=== PATIENT | female | born 1945 | race Caucasian/White ===

== ENCOUNTER 2018-12-22 10:21 | Emergency (ER) | payer OTHER ==
--- OUTSIDE RECORDS SUMMARY | 2018-12-22 10:24 | XMS REPORT ---
:1945 Author Organization eClinicalWorks Care Team Providers Name Role Phone Kai Luz Provider Role Unavailable Allergies No Known Allergies Problems Problem Type Condition Code Onset Dates Condition Status Problem Irritable bowel syndrome with K58.0 Active constipation and diarrhea Problem History of coronary artery stent Z95.5 Active placement Problem Atherosclerosis of coronary artery I25.10 Active of [place] [facility] Problem Benign essential HTN I10 Active Problem Polyp of colon, unspecified part of K63.5 Active colon, unspecified type Problem Memory loss R41.3 Active Problem Chronic back pain M54.9 Active Problem Osteoporosis M81.0 Active Problem Anorexia R63.0 Active Medications No Known Medications Results No Known Results Summary Purpose eClinicalWorks Submission
--- OUTSIDE RECORDS SUMMARY | 2018-12-22 10:24 | XMS REPORT ---
:1945 Author Organization eClinicalWorks Care Team Providers Name Role Phone LuzPhilliph Provider Role Unavailable Allergies, Adverse Reactions, Alerts Substance Reaction Event Type N.K.D.A. Info Not Available Non Drug Allergy Problems Problem Type Condition Code Onset Dates Condition Status Problem Irritable bowel syndrome with K58.0 Active constipation and diarrhea Problem History of coronary artery stent Z95.5 Active placement Assessment Osteoporosis M81.0 Active Problem Atherosclerosis of coronary artery I25.10 Active of [place] heart Problem Benign essential HTN I10 Active Problem Polyp of colon, unspecified part of K63.5 Active colon, unspecified type Problem Memory loss R41.3 Active Problem Chronic back pain M54.9 Active Problem Osteoporosis M81.0 Active Problem Anorexia R63.0 Active Medications Medication Code Code Instructions Start End Status Dosage System Date Date Potassium [facility] 27475771590 Oral Active 1 tab Calcium [facility] 68638258813 600 MG Orally Active 1 tablet with Twice a day meals Furosemide ND 65932335713 20 MG Orally Active 1 tablet Once a day Coreg [facility] 21775435519 6.25 MG Orally Active 1 tab BID Aricept [facility] 81371489921 5 MG Orally Active 1 tablet at Once a day bedtime Aspir-81 [facility] 23638832049 81 MG Orally Active 1 tablet Once a day Prolia [facility] 99457418502 60 MG/ML Active 60 MG INJECTED SUBCUTANEOUSLY EVERY 6 MONTHS Niacin [facility] 88695493654 500 MG Orally Active 1 tablet with Once a day food Results No Known Results Summary Purpose eClinicalWorks Submission
--- OUTSIDE RECORDS SUMMARY | 2018-12-22 10:24 | XMS REPORT ---
:1945 Author Organization eClinicalWorks Care Team Providers Name Role Phone Kai Luz Provider Role Unavailable Allergies No Known Allergies Problems Problem Type Condition Code Onset Dates Condition Status Problem Irritable bowel syndrome with K58.0 Active constipation and diarrhea Problem History of coronary artery stent Z95.5 Active placement Problem Atherosclerosis of coronary artery I25.10 Active of [place] heart Problem Benign essential HTN I10 Active Problem Polyp of colon, unspecified part of K63.5 Active colon, unspecified type Problem Memory loss R41.3 Active Problem Chronic back pain M54.9 Active Problem Osteoporosis M81.0 Active Problem Anorexia R63.0 Active Assessment History of coronary artery stent Z95.5 Active placement Assessment Anorexia R63.0 Active Assessment Polyp of colon, unspecified part of K63.5 Active colon, unspecified type Assessment Osteoporosis M81.0 Active Assessment Chronic back pain M54.9 Active Assessment Irritable bowel syndrome with K58.0 Active constipation and diarrhea Assessment Benign essential HTN I10 Active Assessment Memory loss R41.3 Active Assessment Atherosclerosis of coronary artery I25.10 Active of [place] heart Medications Medication Code Code Instructions Start End Date Status Dosage System Date Furosemide [facility] 14016821738 20 MG Orally Active 1 tablet Once a day Potassium ND 93443345361 Oral Active 1 tab Aspir-81 [facility] 73391839149 81 MG Orally Active 1 tablet Once a day Prolia [facility] 76676758208 60 MG/ML June 10, Active as directed Subcutaneous 2019 Every 6 months Coreg ND 46077394719 6.25 MG Orally Active 1 tab BID Calcium ND 76745979426 600 MG Orally Active 1 tablet Twice a day with meals Niacin ND 24868170641 500 MG Orally Active 1 tablet Once a day with food Aricept [facility] 40596308880 5 MG Orally Once Active 1 tablet at a day bedtime Results No Known Results Summary Purpose eClinicalWorks Submission
--- OUTSIDE RECORDS SUMMARY | 2018-12-22 10:24 | XMS REPORT ---
:1945 Author Organization eClinicalWorks Care Team Providers Name Role Phone Kai Luz Provider Role Unavailable Allergies No Known Allergies Problems Problem Type Condition Code Onset Dates Condition Status Assessment Atherosclerosis of coronary artery I25.10 Active of [place] [facility] Problem Irritable bowel syndrome with K58.0 Active constipation and diarrhea Problem History of coronary artery stent Z95.5 Active placement Problem Atherosclerosis of coronary artery I25.10 Active of [place] [facility] Problem Benign essential HTN I10 Active Problem Polyp of colon, unspecified part of K63.5 Active colon, unspecified type Problem Memory loss R41.3 Active Problem Chronic back pain M54.9 Active Problem Osteoporosis M81.0 Active Problem Anorexia R63.0 Active Assessment Polyp of colon, unspecified part of K63.5 Active colon, unspecified type Assessment History of coronary artery stent Z95.5 Active placement Assessment Memory loss R41.3 Active Assessment Osteoporosis M81.0 Active Assessment Anorexia R63.0 Active Assessment Chronic back pain M54.9 Active Assessment Irritable bowel syndrome with K58.0 Active constipation and diarrhea Assessment Benign essential HTN I10 Active Medications Medication Code System Code Instructions Start End Date Status Dosage Date Aricept [facility] 19240275418 5 MG Orally Once Active 1 tablet at a day bedtime Coreg [facility] 26933525062 6.25 MG Orally Active 1 tab BID Aspir-81 [facility] 67459182980 81 MG Orally Active 1 tablet Once a day Niacin [facility] 07167403977 500 MG Orally Active 1 tablet Once a day with food Potassium [facility] 09152295482 Oral Active 1 tab Calcium [facility] 15932284539 600 MG Orally Active 1 tablet Twice a day with meals Furosemide [facility] 17990099641 20 MG Orally Active 1 tablet Once a day Prolia [facility] 99074171773 60 MG/ML Active not defined Subcutaneous Results No Known Results Summary Purpose eClinicalWorks Submission
--- NOTE | 2018-12-22 10:58 | RAD REPORT ---
EXAM DESCRIPTION: CT - Head Brain Wo Cont - 12/22/2018 10:51 am CLINICAL HISTORY: Syncope;Headache History of prior CVA COMPARISON: Brain Wo Cont dated 04/23/2018 TECHNIQUE: All CT scans are performed using dose optimization technique as appropriate and may inclu de automated exposure control or mA/KV adjustment according to patient size. FINDINGS: No intracranial hemorrhage, hydrocephalus or extra-axial fluid collection.Mild generalized brain atrophy is seen.No areas of brain edema or evidence of midline shift. Area of gliosis is seen corresponding to previous infarct posterior right frontal lobe. The paranasal sinuses and mastoids are clear. The calvarium is intact. IMPRESSION: No acute intracranial abnormality.
--- NOTE | 2018-12-22 11:29 | RAD REPORT ---
EXAM DESCRIPTION: RAD - Chest Pa And Lat (2 Views) - 12/22/2018 11:16 am CLINICAL HISTORY: BLUNT CHEST TRAUMA Chest pain. COMPARISON: Chest Single View dated 05/10/2016; ABDOMEN ACUTE SERIES dated 05/14/2009; CHEST PA AND LA T 2 VIEW dated 10/13/2008; CHEST SINGLE VIEW dated 07/14/2008 FINDINGS: A prominent hyperexpansion of the lungs is noted compatible with underlying COPD. The hear t is normal in size. No displaced fractures. Moderate S-shaped scoliosis of the thoracolumbar spine. Aortic atherosclerosis. IMPRESSION: Advanced COPD.
[2018-12-22 12:04] LABS: Absolute Lymphocytes (CBC) 1.9 K/uL (0.7-4.9); Absolute Monocytes 0.9 K/uL (0.1-1.3); Absolute Neutrophil 5.5 K/uL (1.8-8.0); Basophils % 0.8 % (0-1.3); Eosinophils % 1.1 % (0-4.4); Hematocrit 45.6 % (36.0-45.0); Lymphocytes % 22.1 % (15.3-44.8); MPV 7.8 fL (7.6-11.3); Monocytes % 10.1 % (3.3-12.3); RBC Red Blood Cell Count 5.43 M/uL (3.86-4.86)
[2018-12-22 12:08] LABS: Protime INR 1.16
[2018-12-22 12:38] LABS: BUN Blood Urea Nitrogen 7 mg/dL (7-18); Bicarbonate 36 mmol/L (21-32); Glucose Level 94 mg/dL (74-106); Sodium Level 141 mmol/L (136-145); Troponin (Emerg Dept Use Only) < 0.02 ng/mL (0.0-0.045)
[2018-12-22 12:57] LABS: Potassium 2.6 mmol/L (3.5-5.1)
--- NOTE | 2018-12-22 13:24 | EKG ---
Test Date: 2018-12-22 Test Time: 11:26:24 Leasing Representative: WILMA MEASUREMENT RESULTS: Intervals: Rate: 75 ME: 180 QRSD: 90 QT: 396 QTc: 442 [place]: P: 85 ME: 180 QRS: 78 T: 64 INTERPRETIVE STATEMENTS: Normal sinus rhythm Normal ECG Compared to ECG 05/10/2016 15:45:23 Left ventricular hypertrophy no longer present Electronically Signed On 12-22-18 13:23:57 OPERATIONS ADMINISTRATOR by Bebeto Maldonado
--- NOTE | 2018-12-22 13:25 | ER ---
Nurse's Notes [facility] Name: Anh Saavedra Age: 73 yrs Sex: Female : 1945 Arrival Date: 12/22/2018 Time: 10:24 Bed 16 Private MD: Kai Luz Diagnosis: Syncope and collapse;Dehydration;Hypokalemia Presentation: 12/22 10:42 Presenting complaint: Patient states: Syncopal episode last night at approx 1730, ph reports that pt vomited x 2 last night and was sluggish this morning, pt reports pain in top of head and in chest w/ movement. Transition of care: patient was not received from another setting of care. Onset of symptoms was December 22, 2018. Risk Assessment: Do you want to hurt yourself or someone else? Patient reports no desire to harm self or others. Initial Sepsis Screen: Does the patient meet any 2 criteria? No. Patient's initial sepsis screen is negative. Does the patient have a suspected source of infection? No. Patient's initial sepsis screen is negative. Care prior to arrival: None. 10:42 Method Of Arrival: Wheelchair 10:42 Acuity: RAYA 3 ph Historical: - Allergies: 10:45 Sulfa (Sulfonamide Antibiotics); ph - Home Meds: 11:00 furosemide 20 mg Oral tab 1 tab once daily [Active]; carvedilol 6.25 mg oral tab 1 tab rb1 2 times per day [Active]; galantamine 12 mg oral tab 1 tab daily [Active]; aspirin 81 mg Oral chew 1 tab once daily [Active]; calcium carbonate 600 mg (1,500 mg) Oral tab [Active]; potassium gluconate 550 mg (90 mg) oral tab [Active]; Vitamin D3 1,000 unit oral cap [Active]; Vitamin B-12 1,000 mcg Oral tab [Active]; niacin 500 mg Oral tab 1 tab daily [Active]; - PMHx: 10:45 Hypertension; Myocardial infarction; ph - PSHx: 11:00 None; rb1 - Immunization history:: Adult Immunizations unknown. - Social history:: Smoking status: Patient/guardian denies using tobacco. - Family history:: not pertinent. - Ebola Screening: : No symptoms or risks identified at this time. - Hospitalizations: : No recent hospitalization is reported. Screenin:30 Abuse screen: Denies threats or abuse. Nutritional screening: No deficits noted. rb1 Tuberculosis screening: No symptoms or risk factors identified. Fall Risk Fall in past 12 months (25 points). No secondary diagnosis (0 pts). IV access (20 points). Ambulatory Aid- None/Bed Rest/Nurse Assist (0 pts). Gait- Normal/Bed Rest/Wheelchair (0 pts) Mental Status- Oriented to own ability (0 pts). Total [place] Fall Scale indicates High Risk Score (45 or more points). Fall prevention measures have been instituted. Side Rails Up X 2 Placed Close to Nursing Station 1:1 Attendant Assigned Frequent Obs/Assessments Occuring Family Present and informed to notify staff if the need to leave the bedside As available patient and family educated on Fall Prevention Program and Strategies. Assessment: 10:30 General: Appears in no apparent distress. comfortable, Behavior is calm, cooperative. rb1 Pain: Complains of pain in head Pain currently is 5 out of 10 on a pain scale. Pain began 1 day ago. Neuro: Level of Consciousness is awake, alert, obeys commands, Oriented to person, place, time, situation. Cardiovascular: Capillary refill < 3 seconds is brisk in bilateral fingers. Respiratory: Airway is patent Respiratory effort is even, unlabored, Respiratory pattern is regular, symmetrical. GI: Reports vomiting, yesterday but not today. : No signs and/or symptoms were reported regarding the genitourinary system. EENT: Eyes with exudate noted from outer aspect of conjuctiva of left eye and inner aspect of conjunctiva of left eye Sclera/Cornea are reddened in outer aspect of conjuctiva of left eye and inner aspect of conjunctiva of left eye Left eye is being treated by another physician, partial loss of sight in the left eye.. Derm: Skin is pink, warm \T\ dry. 10:30 Cardiovascular: Rhythm is regular. rb1 11:30 Reassessment: Patient appears in no apparent distress at this time. No changes from rb1 previously documented assessment. at bedside. 12:30 Reassessment: Patient appears in no apparent distress at this time. Patient and/or rb1 family updated on plan of care and expected duration. Pain level reassessed. Patient is alert, oriented x 3, equal unlabored respirations, skin warm/dry/pink. pain 4/10. 13:30 Reassessment: Patient appears in no apparent distress at this time. No changes from rb1 previously documented assessment. 13:34 Reassessment: Discharge pending due to Potassium infusing. rb1 14:30 Reassessment: Patient appears in no apparent distress at this time. Patient and/or rb1 family updated on plan of care and expected duration. Pain level reassessed. Patient is alert, oriented x 3, equal unlabored respirations, skin warm/dry/pink. Potassium is still infusing. 14:40 Reassessment: Had to decrease the Potassium to 40 ml/h due to it burning the pt. arm. rb1 15:40 Reassessment: Patient appears in no apparent distress at this time. No changes from rb1 previously documented assessment. 16:05 Reassessment: Pt. is unable to give a urine specimen. Provider notified. Received order rb1 to discharge without urine and for the pt. to follow up with her PCP if she has any symptoms of a UTI. Vital Signs: 10:44 BP 181 / 118; Pulse 74; Resp 16; Temp 98.9; Pulse Ox 96% on R/A; Weight 39.46 kg; ph Height 5 ft. 1 in. (154.94 cm); Pain 7/10; 11:30 BP 170 / 75; Pulse 69; Resp 17; Pulse Ox 96% on R/A; Pain 5/10; rb1 12:30 BP 165 / 73; Pulse 70; Resp 18; Pulse Ox 96% on R/A; rb1 13:30 BP 170 / 81; Pulse 69; Resp 19; Pulse Ox 95% on R/A; rb1 13:50 Pain 0/10; rb1 14:30 BP 161 / 65; Pulse 61; Resp 17; Pulse Ox 97% on R/A; rb1 15:30 BP 180 / 77; Pulse 79; Resp 14; Pulse Ox 97% on R/A; Pain 0/10; rb1 10:44 Body Mass Index 16.44 (39.46 kg, 154.94 cm) ph ED Course: 10:24 Patient arrived in ED. sb2 10:25 Kai Luz DO is Private Physician. sb2 10:27 Evaristo Barahona MD is Attending Physician. rn 10:30 Patient has correct armband on for positive identification. Placed in gown. Bed in low rb1 position. Call light in reach. Side rails up X 1. monitoring engineer on. Pulse ox on. NIBP on. Warm blanket given. 10:30 Missed attempt(s): 22 gauge in left antecubital area. rb1 10:43 Triage completed. ph 10:44 Kay Saeed, RN is Primary Nurse. rb1 10:44 Arm band placed on Patient placed in an exam room, on a stretcher, on hospital monitor, ph on pulse oximetry. 10:51 CT Head Brain wo Cont In Process Unspecified. EDMS 11:13 X-ray completed. jb2 11:14 XRAY Chest Pa And Lat (2 Views) In Process Unspecified. EDMS 11:43 EKG done, by bioprocessing manufacturing technician. reviewed by Evaristo Barahona MD. dt2 11:46 Initial lab(s) drawn, by me, sent to lab. Missed attempt(s): 22 gauge in left ms antecubital area. Inserted saline lock: 24 gauge in right wrist, using aseptic technique. Blood collected. 13:24 Kai Luz DO is Referral Physician. rn 16:16 No provider procedures requiring assistance completed. IV discontinued, intact, rb1 bleeding controlled, No redness/swelling at site. Pressure dressing applied. Administered Medications: 13:34 Drug: NS 0.9% 500 ml Route: IV; Rate: bolus; Site: right forearm; rb1 14:55 Follow up: IV Status: Completed infusion rb1 13:34 Drug: Potassium Chloride 40 mEq Route: PO; rb1 14:00 Follow up: Response: No adverse reaction rb1 13:34 Drug: Potassium Chloride 20 mEq Route: IV; Rate: calculated rate; Site: right forearm; rb1 15:58 Follow up: Response: No adverse reaction; IV Status: Completed infusion rb1 15:00 Drug: NS 0.9% 250 ml Route: IV; Rate: bolus; Site: right forearm; rb1 15:58 Follow up: IV Status: Completed infusion rb1 Outcome: 13:24 Discharge ordered by MD. rn 16:16 Patient left the ED. rb1 16:16 Discharged to home via wheelchair, with significant other. rb1 16:16 Condition: stable 16:16 Discharge instructions given to patient, Instructed on discharge instructions, follow up and referral plans. Demonstrated understanding of instructions, follow-up care, Prescriptions given X none Signatures: Dispatcher [employer] EDMS Jose Rafael Koo jb2 Marisa Guillen ms, Roman, MD MD rn Vazquez, XENIA Oneil RN ph Christophe, Kay, RN RN rb1 Dorothea Henning2 Ruma Gomes2
--- NOTE | 2018-12-22 13:25 | EDPHYS ---
Physician Documentation [facility] Name: Anh Saavedra Age: 73 yrs Sex: Female : 1945 Arrival Date: 12/22/2018 Time: 10:24 Bed 16 Private MD: Kai Luz ED Physician Evaristo Barahona HPI: 12/22 10:40 This 73 yrs old Female presents to ER via Unassigned with complaints of rn Syncope, Fall Injury. 10:40 The patient has experienced syncope. Onset: The symptoms/episode began/occurred rn yesterday. Associated signs and symptoms: Pertinent positives: confusion, headache. Current symptoms: confusion. The patient has not experienced similar symptoms in the past. Family reports fall/passed out yesterday afternoon around 1700, felt fine earlier in day, reports feeling "bad", needed to go lay down but passed out and woke up in corner of room. Did not have preceding pain. Threw up twice last night. Woke up this morning still "sluggish", when called pcp told to come in to ER for eval. NO focal neurological complaint. . Historical: - Allergies: 10:45 Sulfa (Sulfonamide Antibiotics); ph - Home Meds: 11:00 furosemide 20 mg Oral tab 1 tab once daily [Active]; carvedilol 6.25 mg oral tab 1 tab rb1 2 times per day [Active]; galantamine 12 mg oral tab 1 tab daily [Active]; aspirin 81 mg Oral chew 1 tab once daily [Active]; calcium carbonate 600 mg (1,500 mg) Oral tab [Active]; potassium gluconate 550 mg (90 mg) oral tab [Active]; Vitamin D3 1,000 unit oral cap [Active]; Vitamin B-12 1,000 mcg Oral tab [Active]; niacin 500 mg Oral tab 1 tab daily [Active]; - PMHx: 10:45 Hypertension; Myocardial infarction; ph - PSHx: 11:00 None; rb1 - Immunization history:: Adult Immunizations unknown. - Social history:: Smoking status: Patient/guardian denies using tobacco. - Family history:: not pertinent. - Ebola Screening: : No symptoms or risks identified at this time. - Hospitalizations: : No recent hospitalization is reported. ROS: 10:40 Constitutional: Negative for fever, chills, and weight loss, Eyes: Negative for injury rn Neck: Negative for injury, pain, and swelling, Cardiovascular: Negative for palpitations, and edema, Respiratory: Negative for shortness of breath, cough, wheezing, and pleuritic chest pain, Abdomen/GI: Negative for abdominal pain, diarrhea, and constipation, MS/Extremity: Negative for injury and deformity, Skin: Negative for injury, rash, and discoloration, Neuro: Negative for numbness, tingling, and seizure. Exam: 10:40 Constitutional: This is a well developed, well nourished patient who is awake, alert, rn and in no acute distress. Head/Face: Normocephalic, atraumatic. Eyes: + left eye erythema ENT: MMM Neck: Trachea midline, no thyromegaly or masses palpated, and no cervical lymphadenopathy. Supple, full range of motion without nuchal rigidity, or vertebral point tenderness. No Meningismus. Cardiovascular: Regular rate and rhythm with a normal S1 and S2. No gallops, murmurs, or rubs. No JVD. No pulse deficits. Respiratory: Lungs have equal breath sounds bilaterally, clear to auscultation and percussion. No rales, rhonchi or wheezes noted. No increased work of breathing, no retractions or nasal flaring. Abdomen/GI: Soft, non-tender Skin: Warm, dry with normal turgor. Normal color with no rashes, no lesions, and no evidence of cellulitis. MS/ Extremity: Pulses equal, no cyanosis. Neurovascular intact. Full, normal range of motion. Equal circumference. Neuro: Awake and alert, GCS 15, oriented to person, place, time, and situation. Cranial nerves II-XII grossly intact. Motor strength 5/5 in all extremities. Sensory grossly intact. Cerebellar exam normal. 12:41 ECG was reviewed by the Attending Physician. rn Vital Signs: 10:44 BP 181 / 118; Pulse 74; Resp 16; Temp 98.9; Pulse Ox 96% on R/A; Weight 39.46 kg; ph Height 5 ft. 1 in. (154.94 cm); Pain 7/10; 11:30 BP 170 / 75; Pulse 69; Resp 17; Pulse Ox 96% on R/A; Pain 5/10; rb1 12:30 BP 165 / 73; Pulse 70; Resp 18; Pulse Ox 96% on R/A; rb1 13:30 BP 170 / 81; Pulse 69; Resp 19; Pulse Ox 95% on R/A; rb1 13:50 Pain 0/10; rb1 14:30 BP 161 / 65; Pulse 61; Resp 17; Pulse Ox 97% on R/A; rb1 15:30 BP 180 / 77; Pulse 79; Resp 14; Pulse Ox 97% on R/A; Pain 0/10; rb1 10:44 Body Mass Index 16.44 (39.46 kg, 154.94 cm) ph MDM: 10:27 Patient medically screened. rn 13:22 Differential Diagnosis: idiopathic syncope, vasovagal episode, seizure, dehydration, rn electrolyte disorder.. Data reviewed: vital signs, nurses notes, lab test result(s), EKG, radiologic studies, CT scan, plain films, and as a result, I will discharge patient. Counseling: I had a detailed discussion with the patient and/or guardian regarding: the historical points, exam findings, and any diagnostic results supporting the discharge/admit diagnosis, lab results, radiology results, the need for further work-up and treatment in the hospital. Response to treatment: the patient's symptoms have mildly improved after treatment, and as a result, I will discharge patient. Admission orders: after a detailed discussion of the patient's condition and case, the admit orders are written by me. Special discussion: I discussed with the patient/guardian in detail that at this point there is no indication for admission to the hospital. It is understood, however, that if the symptoms persist or worsen the patient needs to return immediately for re-evaluation. ED course: Pt states feels better, normal neuro exam, neg ct head, requests to go home, given fluids and potassium for dehydration and hypokalemia, will recheck potassium with pcp and return precautions given and understood. . 12/22 10:39 Order name: Basic Metabolic Panel; Complete Time: 13: rn 12/22 10:39 Order name: CBC with Diff; Complete Time: 12:52 rn 12/22 10:39 Order name: Magnesium; Complete Time: 13: rn 12/22 10:39 Order name: Protime (+inr); Complete Time: 12:52 rn 12/22 10:39 Order name: Ptt, Activated; Complete Time: 12: rn 12/22 10:39 Order name: Troponin (emerg Dept Use Only); Complete Time: 13:07 rn 12/22 10:39 Order name: CT Head Brain wo Cont; Complete Time: 11:21 rn 12/22 10:39 Order name: EKG; Complete Time: 10:41 rn 12/22 10:39 Order name: Cardiac monitoring; Complete Time: 11:47 rn 12/22 10:39 Order name: XRAY Chest Pa And Lat (2 Views); Complete Time: 11:37 rn 12/22 10:39 Order name: EKG - Nurse/Tech; Complete Time: 11: rn 12/22 10:39 Order name: IV Saline Lock; Complete Time: 11: rn 12/22 10:39 Order name: Labs collected and sent; Complete Time: : rn 12/22 10:39 Order name: NPO; Complete Time: : rn 12/22 10:39 Order name: O2 Per Protocol; Complete Time: : rn 12/22 10:39 Order name: O2 Sat Monitoring; Complete Time: : rn 12/22 10:39 Order name: Urine Dipstick-Ancillary (obtain specimen); Complete Time: 16:20 rn EC:41 Rate is 75 beats/min. Rhythm is regular. QRS [place] is Normal. VT interval is normal. QRS rn interval is normal. QT interval is normal. No Q waves. T waves are Normal. No ST changes noted. Clinical impression: Normal ECG. Interpreted by me. Administered Medications: 13:34 Drug: NS 0.9% 500 ml Route: IV; Rate: bolus; Site: right forearm; rb1 14:55 Follow up: IV Status: Completed infusion rb1 13:34 Drug: Potassium Chloride 40 mEq Route: PO; rb1 14:00 Follow up: Response: No adverse reaction rb1 13:34 Drug: Potassium Chloride 20 mEq Route: IV; Rate: calculated rate; Site: right forearm; rb1 15:58 Follow up: Response: No adverse reaction; IV Status: Completed infusion rb1 15:00 Drug: NS 0.9% 250 ml Route: IV; Rate: bolus; Site: right forearm; rb1 15:58 Follow up: IV Status: Completed infusion rb1 Disposition: 12/22/18 13:24 Discharged to Home. Impression: Syncope and collapse, Dehydration, Hypokalemia. - Condition is Stable. - Discharge Instructions: Dehydration, Adult, Potassium Content of Foods, Syncope, Hypokalemia. - Medication Reconciliation Form, Thank You Letter, Antibiotic Education, Prescription Opioid Use form. - Follow up: Kai Luz DO; When: As needed; Reason: Recheck today's complaints, Re-evaluation by your physician. - Problem is new. - Symptoms have improved. Signatures: Dispatcher [employer] EDMS Evaristo Barahona MD MD rn Hall, Patricia, RN RN Kay Saeed RN RN rb1 Corrections: (The following items were deleted from the chart) 16:16 13:24 12/22/2018 13:24 Discharged to Home. Impression: Syncope and collapse; rb1 Dehydration; Hypokalemia. Condition is Stable. Forms are Medication Reconciliation Form, Thank You Letter, Antibiotic Education, Prescription Opioid Use. Follow up: Kai Luz; When: As needed; Reason: Recheck today's complaints, Re-evaluation by your physician. Problem is new. Symptoms have improved. rn
[2018-12-22] MEDS ORDERED: POTASSIUM CL SA 10 MEQ TAB PO ONE (13:40)
[2018-12-22] MEDS ORDERED: NA CHLORIDE 0.9% 500 ML ONE (13:40)
[2018-12-22] MEDS ORDERED: KCL 20 MEQ/100 mL IVPB 20 MEQ/100 ML BAG IV ONE (13:41)
[2018-12-22] MEDS ORDERED: NA CHLORIDE 0.9% 250 ML ONE (14:54)
== END 2018-12-22 16:16 | disposition home or self-care (01) ==
LOC: ER 10:21
DX: E86.0 Dehydration (principal); E87.6 Hypokalemia; R55 Syncope and collapse; I10 Essential (primary) hypertension; I25.2 Old myocardial infarction; Z79.899 Other long term (current) drug therapy
CPT/HCPCS: 36415; 70450; 71046; 80048; 83735; 84484; 85025; 85610; 85730; 93005; 96365; 96366; 99285

== ENCOUNTER 2019-05-07 10:26 | Emergency (ER) | payer OTHER ==
--- OUTSIDE RECORDS SUMMARY | 2019-05-07 10:28 | XMS REPORT | Clinical Summary ---
:1945 Author Organization [address] [address] Care Team Providers Name Role Phone Unavailable Primary Care Provider Unavailable Allergies Not on File Medications Not on file Active Problems Not on file Encounters Date Type Specialty Care Team Description 04/19/2019 Lab Lab Candy Breen MD after 05/06/2018 Social History Tobacco Use Types Packs/Day Years Used Date Never Assessed Sex Assigned at Date Recorded Not on file Job Start Date Occupation Industry Not on file Not on file Not on file Travel History Travel Start Travel End No recent travel history available. Last Filed Vital Signs Not on file Plan of Treatment Health Maintenance Due Date Last Done Comments BREAST CANCER SCREENING 1996 COLON CANCER SCREENING 1996 SHINGLES VACCINES (#1) 1996 65+ PNEUMOCOCCAL VACCINE (1 of 2 - PCV13) 2011 INFLUENZA VACCINE 07/01/2019 Procedures Procedure Name Priority Date/Time Associated Diagnosis Comments FUNGUS CULTURE Routine 04/19/2019 5:01 PM CDT ACRIDINE ORANGE Routine 04/19/2019 5:01 PM Results for this STAIN CDT procedure are in the results section. EYE CULTURE, Routine 04/19/2019 5:01 PM Results for this ANAEROBIC CDT procedure are in the results section. EYE CULTURE Routine 04/19/2019 5:01 PM CDT after 05/06/2018 Results Eye culture, anaerobic (04/19/2019 5:01 PM CDT) Eye culture Thioglycollate broth: [facility] isolate, No anaerobes isolated after 7 days. HOSPITAL anaerobic Comment: Specimen Information Specimen Source: Specimen Site: Left Eye- Extruded Scleral Buckle Specimen Performing Organization Address City/State/Zipcode Phone Number [facility] DEPARTMENT OF PATHOLOGY AND [address] [place] [address] GENOMIC MEDICINE [address] [address] Acridine orange stain (04/19/2019 5:01 PM CDT) Acridine orange No WBC's or organisms seen [facility] stain Comment: HOSPITAL Specimen Information Specimen Source: Specimen Site: Left Eye- Extruded Scleral Buckle Specimen Performing Organization Address City/State/Zipcode Phone Number [facility] DEPARTMENT OF PATHOLOGY AND [address] [place] [address] GENOMIC MEDICINE [facility] [address] [place] [address] after 05/06/2018 Advance Directives Patient has advance care planning documents on file. For more information, please contact:[facility] [place] [address]
--- OUTSIDE RECORDS SUMMARY | 2019-05-07 10:29 | XMS REPORT ---
:1945 Author Organization e[employer] Care Team Providers Name Role Phone Kai Luz Provider Role Unavailable Allergies No Known Allergies Problems Problem Type Condition Code Onset Dates Condition Status Problem Irritable bowel syndrome with K58.0 Active constipation and diarrhea Problem History of coronary artery stent Z95.5 Active placement Problem Atherosclerosis of coronary artery I25.10 Active of [place] heart Problem Benign essential HTN I10 Active [...] Atherosclerosis of coronary artery I25.10 Active of [place] [facility] Medications Medication Code Code Instructions Start End Date Status Dosage System Date Furosemide [facility] 32917450799 20 MG Orally Active 1 tablet Once a day Potassium ND 32530217860 Oral Active 1 tab Aspir-81 [facility] 88910393374 81 MG Orally Active 1 tablet Once a day Prolia [facility] 81664448902 60 MG/ML June 10, Active as directed Subcutaneous 2019 Every 6 months Coreg ND 35712813563 6.25 MG Orally Active 1 tab BID Calcium ND 07966658055 600 MG Orally Active 1 tablet Twice a day with meals Niacin ND 63773572558 500 MG Orally Active 1 tablet Once a day with food Aricept [facility] 41552414253 5 MG Orally Once Active 1 tablet at a day bedtime Results No Known Results Summary Purpose eClinicalWorks Submission
--- OUTSIDE RECORDS SUMMARY | 2019-05-07 10:29 | XMS REPORT ---
:1945 Author Organization e[employer] Care Team Providers Name Role Phone Kai Luz Provider Role Unavailable Allergies, Adverse Reactions, Alerts Substance Reaction Event Type N.K.D.A. Info Not Available Non Drug Allergy Problems Problem Type Condition Code Onset Dates Condition Status Problem Irritable bowel syndrome with K58.0 Active constipation and diarrhea Problem History of coronary artery stent Z95.5 Active placement Problem Atherosclerosis of coronary artery I25.10 Active of [place] heart Problem Benign essential HTN I10 Active Problem Polyp of colon, unspecified part of K63.5 Active colon, unspecified type Problem Memory loss R41.3 Active Problem Chronic back pain M54.9 Active Problem Osteoporosis M81.0 Active Problem Anorexia R63.0 Active Assessment Anorexia R63.0 Active Assessment Irritable bowel syndrome with K58.0 Active constipation and diarrhea Assessment Polyp of colon, unspecified part of K63.5 Active colon, unspecified type Assessment History of coronary artery stent Z95.5 Active placement Assessment Chronic back pain M54.9 Active Assessment Benign essential HTN I10 Active Assessment Memory loss R41.3 Active Assessment Atherosclerosis of coronary artery I25.10 Active of [place] heart Assessment Osteoporosis M81.0 Active Assessment Hypokalemia E87.6 Active Medications Medication Code Code Instructions Start End Status Dosage System Date Date [facility] 12463397420 81 MG Orally Active 1 tablet Once a day Klor-Con M20 [facility] 26081415477 20 MEQ Orally Active 1 tablet with Twice a day food Prolia [facility] 90230273708 60 MG/ML Active as directed Subcutaneous Every 6 months Coreg [facility] 97576162610 6.25 MG Orally Active 1 tab BID Prolia [facility] 33893969462 60 MG/ML Active 60 MG INJECTED SUBCUTANEOUSLY EVERY 6 MONTHS Niacin [facility] 89370768086 500 MG Orally Active 1 tablet with Once a day food Calcium [facility] 83514869319 600 MG Orally Active 1 tablet with Twice a day meals Aricept [facility] 75207382522 5 MG Orally Active 1 tablet at Once a day bedtime Furosemide [facility] 82170312065 20 MG Orally Active 1 tablet Once a day Results No Known Results Summary Purpose eClinicalWorks Submission
--- OUTSIDE RECORDS SUMMARY | 2019-05-07 10:29 | XMS REPORT ---
:1945 Author Organization eClinicalWorks Care Team Providers Name Role Phone Kai Luz Provider Role Unavailable Allergies No Known Allergies Problems Problem Type Condition Code Onset Dates Condition Status Problem Irritable bowel syndrome with K58.0 Active constipation and diarrhea Problem History of coronary artery stent Z95.5 Active placement Problem Atherosclerosis of coronary artery I25.10 Active of [place] heart Problem Benign essential HTN I10 Active Problem Polyp of colon, unspecified part of K63.5 Active colon, unspecified type Problem Memory loss R41.3 Active Problem Chronic back pain M54.9 Active Problem Osteoporosis M81.0 Active Problem Anorexia R63.0 Active Medications No Known Medications Results No Known Results Summary Purpose eClinicalWorks Submission
--- OUTSIDE RECORDS SUMMARY | 2019-05-07 10:29 | XMS REPORT ---
:1945 Author Organization eClinicalWorks Care Team Providers Name Role Phone LuzKai Provider Role Unavailable Allergies No Known Allergies Problems Problem Type Condition Code Onset Dates Condition Status Problem Irritable bowel syndrome with K58.0 Active constipation and diarrhea Problem History of coronary artery stent Z95.5 Active placement Assessment Low blood potassium E87.6 Active Problem Atherosclerosis of coronary artery I25.10 Active of [place] heart Problem Benign essential HTN I10 Active Problem Polyp of colon, unspecified part of K63.5 Active colon, unspecified type Problem Memory loss R41.3 Active Problem Chronic back pain M54.9 Active Problem Osteoporosis M81.0 Active Problem Anorexia R63.0 Active Medications Medication Code Code Instructions Start End Status Dosage System Date Date Niacin ND 98936088877 500 MG Orally Active 1 tablet with Once a day food Aspir-81 ND 87175365345 81 MG Orally Active 1 tablet Once a day Prolia ND 85876347483 60 MG/ML Active 60 MG INJECTED SUBCUTANEOUSLY EVERY 6 MONTHS Furosemide ND 89076505733 20 MG Orally Active 1 tablet Once a day Klor-Con M20 ND 94601806376 20 MEQ Orally Jan 07, Active 1 tablet with Twice a day 2019 food Aricept ND 86469506199 5 MG Orally Active 1 tablet at Once a day bedtime Prolia [facility] 21147868917 60 MG/ML Active as directed Subcutaneous Every 6 months Calcium ND 09295572453 600 MG Orally Active 1 tablet with Twice a day meals Coreg ND 75750428213 6.25 MG Orally Active 1 tab BID Potassium ND 22424370744 Oral Inactive 1 tab Results No Known Results Summary Purpose eClinicalWorks Submission
--- OUTSIDE RECORDS SUMMARY | 2019-05-07 10:29 | XMS REPORT | Clinical Summary ---
:1945 Author Organization [facility] Address [address] [place] [address] Care Team Providers Name Role Phone Pcp, No Primary Care Provider Unavailable Allergies Active Allergy Reactions Severity Noted Date Comments Sulfa (Sulfonamide Antibiotics) 04/19/2019 Medications Medication Sig Dispensed Refills Start Date End Date Status furosemide (LASIX) 20 Take 20 mg by 0 Active MG tablet mouth 2 (two) times daily. galantamine (RAZADYNE) Take 12 mg by 0 Active 12 MG tablet mouth 2 (two) times daily. ofloxacin (OCUFLOX) 0.3 1 drop 4 (four) 0 Active % ophthalmic solution times daily. aspirin 81 MG chewable Take 81 mg by 0 Active tablet mouth daily. calcium Take 1 tablet by 0 Active carbonate-vitamin D3 mouth 2 (two) (CALCIUM-VITAMIN D) 500 times daily with mg(1,250mg) -200 unit breakfast and per tablet dinner. potassium gluconate 550 Take by mouth. 0 Active mg (90 mg) Tab cyanocobalamin (VITAMIN Take 1,000 mcg by 0 Active B-12) 1000 MCG tablet mouth daily. carvedilol (COREG) 6.25 Take 6.25 mg by 0 Active MG tablet mouth 2 (two) times daily with breakfast and dinner. Active Problems Not on file Encounters Date Type Specialty Care Team Description 04/19/2019 Anesthesia Event Ngoc Cheng CRNA 04/19/2019 Surgery Candy Breen, VITRECTOMY,MECHANICAL PARS PLANA 04/19/2019 Hospital Encounter Candy Breen, Retinal detachment, left (Primary Dx) after 05/06/2018 Social History Tobacco Use Types Packs/Day Years Used Date Former Smoker 2 Quit: 04/19/2009 Smokeless Tobacco: Never Used Alcohol Use Drinks/Week oz/Week Comments No Alcohol Habits Answer Date Recorded How often do you have a drink containing alcohol? Never 04/19/2019 How many drinks containing alcohol do you have on a typical Not asked day when you are drinking? How often do you have six or more drinks on one occasion? Not asked Sex Assigned at Date Recorded Not on file Job Start Date Occupation Industry Not on file Not on file Not on file Travel History Travel Start Travel End No recent travel history available. Last Filed Vital Signs Vital Sign Reading Time Taken Blood Pressure 144/57 04/19/2019 3:33 PM CDT Pulse 72 04/19/2019 3:33 PM CDT Temperature 36.4 C (97.5 F) 04/19/2019 3:00 PM CDT Respiratory Rate 15 04/19/2019 3:33 PM CDT Oxygen Saturation 98% 04/19/2019 3:33 PM CDT Inhaled Oxygen Concentration - - Weight 39 kg (86 lb) 04/19/2019 9:11 AM CDT Height 160 cm (5' 3") 04/19/2019 9:11 AM CDT Body Mass Index 15.23 04/19/2019 9:11 AM CDT Plan of Treatment Not on file Procedures Procedure Name Priority Date/Time Associated Diagnosis Comments TARSORRHAPHY 04/19/2019 10:30 AM Extrusion of scleral CDT buckle, subsequent encounter Lid retraction, left 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
--- OUTSIDE RECORDS SUMMARY | 2019-05-07 10:29 | XMS REPORT ---
:1945 Author Organization eClinicalWorks Care Team Providers Name Role Phone Kai Luz Provider Role Unavailable Allergies No Known Allergies Problems Problem Type Condition Code Onset Dates Condition Status Assessment Atherosclerosis of coronary artery I25.10 Active of [place] heart Problem Irritable bowel syndrome with K58.0 Active constipation and diarrhea Problem History of coronary artery stent Z95.5 Active placement Problem Atherosclerosis of coronary artery I25.10 Active of [place] heart Problem Benign essential HTN I10 Active [...] Start End Date Status Dosage Date Aricept [facility] 86236857886 5 MG Orally Once Active 1 tablet at a day bedtime Coreg [facility] 68720960029 6.25 MG Orally Active 1 tab BID Aspir-81 [facility] 07987757622 81 MG Orally Active 1 tablet Once a day Niacin [facility] 23596647836 500 MG Orally Active 1 tablet Once a day with food Potassium [facility] 63296637039 Oral Active 1 tab Calcium [facility] 50508641959 600 MG Orally Active 1 tablet Twice a day with meals Furosemide [facility] 23172124238 20 MG Orally Active 1 tablet Once a day Prolia [facility] 48019462413 60 MG/ML Active not defined Subcutaneous Results No Known Results Summary Purpose eClinicalWorks Submission
--- OUTSIDE RECORDS SUMMARY | 2019-05-07 10:29 | XMS REPORT ---
[...] Atherosclerosis of coronary artery I25.10 Active of [place] heart Problem Benign essential HTN I10 Active Problem Polyp of colon, unspecified part of K63.5 Active colon, unspecified type Problem Memory loss R41.3 Active Problem Chronic back pain M54.9 Active Problem Osteoporosis M81.0 Active Problem Anorexia R63.0 Active Assessment Benign essential HTN I10 Active Assessment Hypokalemia E87.6 Active Assessment Asymptomatic hypertensive urgency I16.0 Active Assessment Dehydration E86.0 Active Assessment Syncope, unspecified syncope type R55 Active Medications Medication Code Code Instructions Start End Status Dosage System Date Date Aricept [facility][NOTE 3] 73089109373 5 MG Orally Active 1 tablet at Once a day bedtime Prolia [facility][NOTE 3] 24185241554 60 MG/ML Active as directed Subcutaneous Every 6 months Calcium ND 50418591205 600 MG Orally Active 1 tablet with Twice a day meals Potassium ND 05912092262 Oral Active 1 tab Prolia [facility][NOTE 3] 62028931305 60 MG/ML Active 60 MG INJECTED SUBCUTANEOUSLY EVERY 6 MONTHS Furosemide ND 71599734641 20 MG Orally Active 1 tablet Once a day Aspir-81 ND 98969790605 81 MG Orally Active 1 tablet Once a day Coreg ND 37670557248 6.25 MG Orally Active 1 tab BID Niacin ND 88998694601 500 MG Orally Active 1 tablet with Once a day food Results No Known Results Summary Purpose eClinicalWorks Submission
--- OUTSIDE RECORDS SUMMARY | 2019-05-07 10:29 | XMS REPORT ---
:1945 Author Organization eClinicalWorks Care Team Providers Name Role Phone Kai Luz Provider Role Unavailable Allergies No Known Allergies Problems Problem Type Condition Code Onset Dates Condition Status Problem Irritable bowel syndrome with K58.0 Active constipation and diarrhea Problem History of coronary artery stent Z95.5 Active placement Problem Atherosclerosis of coronary artery I25.10 Active of [place] heart Problem Benign essential HTN I10 Active Problem Polyp of colon, unspecified part of K63.5 Active colon, unspecified type Problem Memory loss R41.3 Active Problem Chronic back pain M54.9 Active Problem Osteoporosis M81.0 Active Problem Anorexia R63.0 Active Medications No Known Medications Results No Known Results Summary Purpose eClinicalWorks Submission
--- OUTSIDE RECORDS SUMMARY | 2019-05-07 10:29 | XMS REPORT ---
[...] Atherosclerosis of coronary artery I25.10 Active of [place] [facility] Problem Benign essential HTN I10 Active Problem Polyp of colon, unspecified part of K63.5 Active colon, unspecified type Problem Memory loss R41.3 Active Problem Chronic back pain M54.9 Active Problem Osteoporosis M81.0 Active Problem Anorexia R63.0 Active Medications Medication Code Code Instructions Start End Status Dosage System Date Date Potassium [facility] 68185158949 Oral Active 1 tab Calcium [facility] 77579512856 600 MG Orally Active 1 tablet with Twice a day meals Furosemide ND 76456991002 20 MG Orally Active 1 tablet Once a day Coreg [facility] 04118152414 6.25 MG Orally Active 1 tab BID Aricept [facility] 80085007028 5 MG Orally Active 1 tablet at Once a day bedtime Aspir-81 [facility] 30025416092 81 MG Orally Active 1 tablet Once a day Prolia [facility] 18106393176 60 MG/ML Active 60 MG INJECTED SUBCUTANEOUSLY EVERY 6 MONTHS Niacin [facility] 49654000480 500 MG Orally Active 1 tablet with Once a day food Results No Known Results Summary Purpose eClinicalWorks Submission
--- OUTSIDE RECORDS SUMMARY | 2019-05-07 10:30 | XMS REPORT ---
:1945 Author Organization eClinicalWorks Care Team Providers Name Role Phone Kai Luz Provider Role Unavailable Allergies No Known Allergies Problems Problem Type Condition Code Onset Dates Condition Status Problem Irritable bowel syndrome with K58.0 Active constipation and diarrhea Problem History of coronary artery stent Z95.5 Active placement Problem Atherosclerosis of coronary artery I25.10 Active of [place] heart Problem Benign essential HTN I10 Active Problem Polyp of colon, unspecified part of K63.5 Active colon, unspecified type Problem Memory loss R41.3 Active Problem Chronic back pain M54.9 Active Problem Osteoporosis M81.0 Active Problem Anorexia R63.0 Active Medications No Known Medications Results No Known Results Summary Purpose eClinicalWorks Submission
[2019-05-07 11:41] LABS: Absolute Lymphocytes (CBC) 2.1 K/uL (0.7-4.9); Absolute Monocytes 0.7 K/uL (0.1-1.3); Absolute Neutrophil 6.1 K/uL (1.8-8.0); Basophils % 1.3 % (0-1.3); Eosinophils % 0.9 % (0-4.4); Hematocrit 45.5 % (36.0-45.0); MPV 7.7 fL (7.6-11.3); Monocytes % 7.9 % (3.3-12.3)
[2019-05-07 12:04] LABS: ALT/SGPT 16 U/L (12-78); AST/SGOT 18 U/L (15-37); Albumin 3.4 g/dL (3.4-5.0); Alkaline Phosphatase 90 U/L (45-117); BUN Blood Urea Nitrogen 19 mg/dL (7-18); Bicarbonate 23 mmol/L (21-32); Bilirubin Direct < 0.1 mg/dL (0-0.2); Bilirubin Total 0.3 mg/dL (0.2-1.0); Glucose Level 92 mg/dL (74-106); Potassium 4.8 mmol/L (3.5-5.1); Protein, Total 7.8 g/dL (6.4-8.2); Sodium Level 135 mmol/L (136-145)
[2019-05-07] MEDS ORDERED: NA CHLORIDE 0.9% 500 ML ONE (12:26)
--- NOTE | 2019-05-07 13:24 | ER ---
Nurse's Notes [facility] Name: Anh Saavedra Age: 74 yrs Sex: Female : 1945 Arrival Date: 05/07/2019 Time: 10:31 Bed 7 Private MD: Kai Luz Diagnosis: Other fatigue Presentation: 05/07 10:33 Presenting complaint: states: "Starting April 20 shortly after having eye ss surgery, she has been sleeping 15 + hours a day ." Pt has no complaints other than feeling tired. Sent by Dr. Luz for evaluation as they could not see her today. Transition of care: patient was not received from another setting of care. Onset of symptoms was April 20, 2019. Risk Assessment: Do you want to hurt yourself or someone else? Patient reports no desire to harm self or others. Initial Sepsis Screen: Does the patient meet any 2 criteria? No. Patient's initial sepsis screen is negative. Does the patient have a suspected source of infection? No. Patient's initial sepsis screen is negative. Care prior to arrival: None. 10:33 Method Of Arrival: Ambulatory ss 10:33 Acuity: RAYA 3 ss Historical: - Allergies: 10:38 Sulfa (Sulfonamide Antibiotics); ss - Home Meds: 11:03 aspirin 81 mg Oral chew 1 tab once daily [Active]; calcium carbonate 600 mg (1,500 mg) tw2 Oral tab [Active]; carvedilol 6.25 mg Oral tab 1 tab 2 times per day [Active]; cholerestrol med [Active]; furosemide 20 mg Oral tab 1 tab once daily [Active]; niacin 500 mg Oral tab 1 tab daily [Active]; Vitamin B-12 1,000 mcg Oral tab [Active]; potassium gluconate 550 mg (90 mg) Oral tab [Active]; Vitamin D3 1,000 unit Oral cap [Active]; galantamine 12 mg Oral tab 1 tab daily [Active]; fluid pill [Active]; - PMHx: 10:38 Hypertension; Myocardial infarction; High Cholesterol; ss - PSHx: 10:38 R nephrectomy; Cholecystectomy; surgery to L eye (detatched retina repair); Tubal ss ligation; - Immunization history:: Adult Immunizations up to date. - Social history:: Smoking status: Patient/guardian denies using tobacco. - Ebola Screening: : Patient denies exposure to infectious person Patient denies travel to an Ebola-affected area in the 21 days before illness onset. Screenin:53 Abuse screen: Denies threats or abuse. Nutritional screening: No deficits noted. tw2 Tuberculosis screening: No symptoms or risk factors identified. Fall Risk None identified. Assessment: 11:16 General: Appears in no apparent distress. slender, well groomed, Behavior is calm, tw2 cooperative, appropriate for age. Pain: Denies pain. Neuro: Level of Consciousness is awake, alert, obeys commands, Oriented to person, place, situation. Neuro: Reports fatigue since March. Cardiovascular: Heart tones S1 S2 Patient's skin is warm and dry. Respiratory: Airway is patent Respiratory effort is even, unlabored, Respiratory pattern is regular, symmetrical, Breath sounds are clear bilaterally. GI: No signs and/or symptoms were reported involving the gastrointestinal system. Abdomen is flat, non-distended, Bowel sounds present X 4 quads. : No signs and/or symptoms were reported regarding the genitourinary system. EENT: Parent/caregiver reports the patient having eye surgery in March. Derm: No signs and/or symptoms reported regarding the dermatologic system. Skin is fragile, is thin, Skin is dry. Musculoskeletal: Range of motion: intact in all extremities. 12:20 Reassessment: Patient appears in no apparent distress at this time. No changes from tw2 previously documented assessment. Patient and/or family updated on plan of care and expected duration. Pain level reassessed. Patient is alert, oriented x 3, equal unlabored respirations, skin warm/dry/pink. 13:38 Reassessment: Patient appears in no apparent distress at this time. No changes from tw2 previously documented assessment. Patient and/or family updated on plan of care and expected duration. Pain level reassessed. Patient is alert, oriented x 3, equal unlabored respirations, skin warm/dry/pink. Vital Signs: 10:38 BP 146 / 78; Pulse 79; Resp 16; Temp 97.7(TE); Pulse Ox 98% on R/A; Weight 39.92 kg; ss Height 5 ft. 3 in. (160.02 cm); Pain 0/10; 11:18 BP 157 / 77; Pulse 71; Resp 19; Pulse Ox 100% on R/A; tw2 12:20 BP 129 / 60; Pulse 63; Resp 17; Pulse Ox 100% on R/A; tw2 13:37 BP 143 / 61; Pulse 69; Resp 17; Pulse Ox 100% on R/A; tw2 10:38 Body Mass Index 15.59 (39.92 kg, 160.02 cm) ED Course: 10:31 Patient arrived in ED. mr 10:31 Kai Luz DO is Private Physician. mr 10:37 Triage completed. ss 10:38 Arm band placed on left wrist. ss 10:39 Bed in low position. Call light in reach. Adult w/ patient. hop grower on. Pulse tw2 ox on. NIBP on. 10:40 Edgar Willis NP is PHCP. pm1 10:40 Evaristo Barahona MD is Attending Physician. pm1 10:52 Dariana Leigh RN is Primary Nurse. tw2 11:14 Missed attempt(s): 22 gauge in right forearm. Bleeding controlled, band aid applied, tw2 catheter tip intact. 11:17 EKG done, by sleep tech. reviewed by Edgar Willis NP. at1 11:25 Inserted saline lock: 22 gauge in right antecubital area, using aseptic technique. tw2 ,using aseptic technique. per XENIA Klein. 13:23 Kai Luz DO is Referral Physician. pm1 13:39 No provider procedures requiring assistance completed. IV discontinued, intact, tw2 bleeding controlled, No redness/swelling at site. Pressure dressing applied. Administered Medications: 12:15 Drug: NS 0.9% 500 ml Route: IV; Rate: bolus; Site: right antecubital; bp 13:20 Follow up: Response: No adverse reaction; IV Status: Completed infusion; IV Intake: tw2 500ml Intake: 13:20 IV: 500ml; Total: 500ml. tw2 Outcome: 13:23 Discharge ordered by . pm1 13:39 Discharged to home via wheelchair, with significant other. tw2 13:39 Condition: stable 13:39 Discharge instructions given to patient, significant other, Instructed on discharge instructions, follow up and referral plans. Demonstrated understanding of instructions, follow-up care. 13:39 Patient left the ED. tw2 Signatures: Zulema Chavez Shelby, RN RN Rebecca Hooper, supervisor special services EKG Tat1 Edgar Willis, PERSONAL CARE SERVICE PROVIDER PERSONAL CARE SERVICE PROVIDER pm1 Dariana Leigh, RN RN tw2 Ernie Kearney, RN RN bp
--- NOTE | 2019-05-07 13:24 | EDPHYS ---
Physician Documentation [facility] Name: Anh Saavedra Age: 74 yrs Sex: Female : 1945 Arrival Date: 05/07/2019 Time: 10:31 Bed 7 Private MD: Phillip Luzh ED Physician Evaristo Barahona HPI: 05/07 11:16 This 74 yrs old Female presents to ER via Ambulatory with complaints of pm1 Fatigue. 11:16 Patient with reports of fatigue for the past few weeks. Patient does not have any pm1 complaints and does not want to be in the ER. She was brought to the ER by her due to her sleeping more than her norm for the past few weeks. Her attempted to bring to her PCP but at the office the office staff told them they do not have any availability and referred them to the ER. Historical: - Allergies: 10:38 Sulfa (Sulfonamide Antibiotics); ss - Home Meds: 11:03 aspirin 81 mg Oral chew 1 tab once daily [Active]; calcium carbonate 600 mg (1,500 mg) tw2 Oral tab [Active]; carvedilol 6.25 mg Oral tab 1 tab 2 times per day [Active]; cholerestrol med [Active]; furosemide 20 mg Oral tab 1 tab once daily [Active]; niacin 500 mg Oral tab 1 tab daily [Active]; Vitamin B-12 1,000 mcg Oral tab [Active]; potassium gluconate 550 mg (90 mg) Oral tab [Active]; Vitamin D3 1,000 unit Oral cap [Active]; galantamine 12 mg Oral tab 1 tab daily [Active]; fluid pill [Active]; - PMHx: 10:38 Hypertension; Myocardial infarction; High Cholesterol; ss - PSHx: 10:38 R nephrectomy; Cholecystectomy; surgery to L eye (detatched retina repair); Tubal ss ligation; - Immunization history:: Adult Immunizations up to date. - Social history:: Smoking status: Patient/guardian denies using tobacco. - Ebola Screening: : Patient denies exposure to infectious person Patient denies travel to an Ebola-affected area in the 21 days before illness onset. ROS: 11:16 Eyes: Negative for injury, pain, redness, and discharge, ENT: Negative for injury, pm1 pain, and discharge, Neck: Negative for injury, pain, and swelling, Cardiovascular: Negative for chest pain, palpitations, and edema, Respiratory: Negative for shortness of breath, cough, wheezing, and pleuritic chest pain, Abdomen/GI: Negative for abdominal pain, nausea, vomiting, diarrhea, and constipation, Back: Negative for injury and pain, : Negative for injury, bleeding, discharge, and swelling. 11:16 MS/Extremity: Negative for injury and deformity, Skin: Negative for injury, rash, and discoloration, Neuro: Negative for headache, weakness, numbness, tingling, and seizure. 11:16 Constitutional: Positive for fatigue, Negative for body aches, chills, fever, poor PO intake. Exam: 11:16 Constitutional: This is a well developed, well nourished patient who is awake, alert, pm1 and in no acute distress. Head/Face: Normocephalic, atraumatic. ENT: Nares patent. No nasal discharge, no septal abnormalities noted. Tympanic membranes are normal and external auditory canals are clear. Oropharynx with no redness, swelling, or masses, exudates, or evidence of obstruction, uvula midline. Mucous membranes moist. Neck: Trachea midline, no thyromegaly or masses palpated, and no cervical lymphadenopathy. Supple, full range of motion without nuchal rigidity, or vertebral point tenderness. No Meningismus. Chest/axilla: Normal chest wall appearance and motion. Nontender with no deformity. No lesions are appreciated. Cardiovascular: Regular rate and rhythm with a normal S1 and S2. No gallops, murmurs, or rubs. Normal PMI, no JVD. No pulse deficits. Respiratory: Lungs have equal breath sounds bilaterally, clear to auscultation and percussion. No rales, rhonchi or wheezes noted. No increased work of breathing, no retractions or nasal flaring. Abdomen/GI: Soft, non-tender, with normal bowel sounds. No distension or tympany. No guarding or rebound. No evidence of tenderness throughout. Back: No spinal tenderness. No costovertebral tenderness. Full range of motion. Skin: Warm, dry with normal turgor. Normal color with no rashes, no lesions, and no evidence of cellulitis. MS/ Extremity: Pulses equal, no cyanosis. Neurovascular intact. Full, normal range of motion. 11:16 Neuro: Orientation: is normal, Mentation: is normal, Motor: moves all fours, Sensation: is normal, no obvious gross deficits, Gait: is steady. Vital Signs: 10:38 BP 146 / 78; Pulse 79; Resp 16; Temp 97.7(TE); Pulse Ox 98% on R/A; Weight 39.92 kg; ss Height 5 ft. 3 in. (160.02 cm); Pain 0/10; 11:18 BP 157 / 77; Pulse 71; Resp 19; Pulse Ox 100% on R/A; tw2 12:20 BP 129 / 60; Pulse 63; Resp 17; Pulse Ox 100% on R/A; tw2 13:37 BP 143 / 61; Pulse 69; Resp 17; Pulse Ox 100% on R/A; tw2 10:38 Body Mass Index 15.59 (39.92 kg, 160.02 cm) ss MDM: 10:45 Patient medically screened. pm1 13:20 Data reviewed: vital signs. Data interpreted: Pulse oximetry: on room air is 100 %. pm1 Interpretation: normal. ED course: Patient does not want to provide a urine sample. Explained that a urinary infection may be a cause for her symptoms. Patient states that she wants to go home now. present at bedside. 13:20 Counseling: I had a detailed discussion with the patient and/or guardian regarding: the pm1 historical points, exam findings, and any diagnostic results supporting the discharge/admit diagnosis, lab results, the need for outpatient follow up, to return to the emergency department if symptoms worsen or persist or if there are any questions or concerns that arise at home. 13:20 ED course: Impression: Patient appears depressed with increased sleep, fatigue, loss of pm1 energy, irritability, lack of interest (told me that she is "used to doing nothing at home"). No homicidal or suicidal ideation. 05/07 10:59 Order name: Basic Metabolic Panel; Complete Time: 12:14 pm1 05/07 10:59 Order name: CBC with Diff; Complete Time: 11:57 pm05/07 10:59 Order name: LFT's; Complete Time: 12:14 pm1 05/07 10:59 Order name: EKG; Complete Time: 11:01 pm1 05/07 10:59 Order name: EKG - Nurse/Tech; Complete Time: 11:13 pm1 05/07 10:59 Order name: IV Saline Lock; Complete Time: 11: pm1 05/07 10:59 Order name: Labs collected and sent; Complete Time: 11: pm1 EC:24 Rate is 66 beats/min. Rhythm is regular. QRS [place] is Normal. No Q waves. T waves are pm1 Normal. No ST changes noted. Clinical impression: Normal ECG. Administered Medications: 12:15 Drug: NS 0.9% 500 ml Route: IV; Rate: bolus; Site: right antecubital; bp 13:20 Follow up: Response: No adverse reaction; IV Status: Completed infusion; IV Intake: tw2 500ml Disposition: 15:11 Co-signature as Attending Physician, Evaristo Barahona MD. rn Disposition: 05/07/19 13:23 Discharged to Home. Impression: Other fatigue. - Condition is Stable. - Discharge Instructions: Fatigue. - Medication Reconciliation Form, Thank You Letter, Antibiotic Education, Prescription Opioid Use form. - Follow up: Emergency Department; When: As needed; Reason: Worsening of condition. Follow up: Kai Luz DO; When: 2 - 3 days; Reason: Recheck today's complaints, Continuance of care, Re-evaluation by your physician. - Problem is new. - Symptoms have improved. Signatures: Dispatcher [employer] EDMS Evaristo Barahona MD MD rn Smirch, Shelby, RN RN ss Edgar Willis, BERNARD ENGLISH LANGUAGE LEARNER TUTOR pm1 Dariana Leigh RN RN tw2 Ernie Kearney RN RN bp Corrections: (The following items were deleted from the chart) 13:39 13:23 05/07/2019 13:23 Discharged to Home. Impression: Other fatigue. Condition is tw2 Stable. Forms are Medication Reconciliation Form, Thank You Letter, Antibiotic Education, Prescription Opioid Use. Follow up: Emergency Department; When: As needed; Reason: Worsening of condition. Follow up: Kai Luz; When: 2 - 3 days; Reason: Recheck today's complaints, Continuance of care, Re-evaluation by your physician. Problem is new. Symptoms have improved. pm1
--- NOTE | 2019-05-08 09:05 | EKG ---
Test Date: 2019-05-07 Test Time: 11:13:02 Kinesiology Internship: HAIDER MEASUREMENT RESULTS: Intervals: Rate: 66 CA: 170 QRSD: 80 QT: 376 QTc: 394 [place]: P: 87 CA: 170 QRS: 80 T: 77 INTERPRETIVE STATEMENTS: Normal sinus rhythm Normal ECG Compared to ECG 12/22/2018 11:26:24 No significant changes Electronically Signed On 05-08-19 09:01:13 CDT by Bebeto Maldonado
== END 2019-05-07 13:39 | disposition home or self-care (01) ==
LOC: ER 10:26
DX: R53.83 Other fatigue (principal); I10 Essential (primary) hypertension; E78.00 Pure hypercholesterolemia, unspecified; I25.2 Old myocardial infarction; Z79.82 Long term (current) use of aspirin; Z88.2 Allergy status to sulfonamides
CPT/HCPCS: 36415; 80048; 80076; 85025; 93005; 96360; 99284

== ENCOUNTER 2019-11-23 09:05 | Emergency (ER) | payer OTHER ==
[2019-11-23] MEDS ORDERED: NA CHLORIDE 0.9% 1,000 ML ONE (11:10)
--- OUTSIDE RECORDS SUMMARY | 2019-11-23 14:10 | XMS REPORT ---
:1945 Author Organization eClinicalWorks Care Team Providers Name Role Phone Kai Luz Provider Role Unavailable Allergies No Known Allergies Problems Problem Type Condition Code Onset Dates Condition Status Problem Irritable bowel syndrome with K58.0 Active constipation and diarrhea Problem History of coronary artery stent Z95.5 Active placement Assessment Hypokalemia E87.6 Active Assessment Benign essential HTN I10 Active Problem Atherosclerosis of coronary artery I25.10 Active of [place] heart Problem Benign essential HTN I10 Active Problem Polyp of colon, unspecified part of K63.5 Active colon, unspecified type Problem Memory loss R41.3 Active Problem Chronic back pain M54.9 Active Problem Osteoporosis M81.0 Active Problem Anorexia R63.0 Active Medications No Known Medications Results No Known Results Summary Purpose eClinicalWorks Submission
--- OUTSIDE RECORDS SUMMARY | 2019-11-23 14:10 | XMS REPORT ---
:1945 Author Organization eClinicalWorks Care Team Providers Name Role Phone LuzKai Provider Role Unavailable Allergies, Adverse Reactions, Alerts Substance Reaction Event Type N.K.D.A. Info Not Available Non Drug Allergy Problems Problem Type Condition Code Onset Dates Condition Status Problem Irritable bowel syndrome with K58.0 Active constipation and diarrhea Problem History of coronary artery stent Z95.5 Active placement Problem Atherosclerosis of coronary artery I25.10 Active of [place] heart Assessment Body mass index less than 16.5 Z68.1 Active Problem Benign essential HTN I10 Active Problem [...] R41.3 Active Assessment Osteoporosis M81.0 Active Assessment Atherosclerosis of coronary artery I25.10 Active of [place] heart Assessment Hypokalemia E87.6 Active Assessment Chronic back pain M54.9 Active Assessment Benign essential HTN I10 Active Medications Medication Code Code Instructions Start End Status Dosage System Date Date Niacin ND 54195741984 500 MG Orally Active 1 tablet Once a day with food Namenda ND 02776501606 5 MG Orally Active 1 tablet Twice a day Galantamine ND 05543145444 12 MG Orally Active 1 tablet Hydrobromide Twice a day with meals Calcium ND 39943335739 600 MG Orally Active 1 tablet Twice a day with meals Prolia ND 23429946472 60 MG/ML Active as Subcutaneous directed Every 6 months Coreg ND 02072812966 12.5 MG Orally Active 1 tab Twice a day Furosemide ND 69492058893 20 MG Orally Inactive 1 tablet Once a day Klor-Con M20 ND 36200867570 20 MEQ Orally Active 1 tablet Twice a day with food Aspir-81 [facility] 60198006809 81 MG Orally Active 1 tablet Once a day Results No Known Results Summary Purpose eClinicalWorks Submission
--- OUTSIDE RECORDS SUMMARY | 2019-11-23 14:10 | XMS REPORT ---
[...] Atherosclerosis of coronary artery I25.10 Active of [place] heart Assessment Body mass index less than [...] Atherosclerosis of coronary artery I25.10 Active of [place] [facility] Assessment Hypokalemia E87.6 Active Assessment Chronic back pain M54.9 Active Assessment Benign essential HTN I10 Active Medications Medication Code Code Instructions Start End Status Dosage System Date Date Coreg [facility] 42167662838 12.5 MG Orally Active 1 tab Twice a day Namenda [facility] 06631393705 5 MG Orally Active 1 tablet Twice a day Calcium ND 24129356164 600 MG Orally Active 1 tablet with Twice a day meals Prolia [facility] 03945079546 60 MG/ML Active as directed Subcutaneous Every 6 months Niacin ND 53217980824 500 MG Orally Active 1 tablet with Once a day food Klor-Con M20 [facility] 08881565726 20 MEQ Orally Active 1 tablet with Twice a day food Prolia [facility] 56770848948 60 MG/ML Active 60 MG INJECTED SUBCUTANEOUSLY EVERY 6 MONTHS Furosemide ND 54889234364 20 MG Orally Inactive 1 tablet Once a day Aspir-81 [facility] 44361687307 81 MG Orally Active 1 tablet Once a day Galantamine [facility] 80339988945 12 MG Orally Active 1 tablet with Hydrobromide Twice a day meals Results No Known Results Summary Purpose eClinicalWorks Submission
[2019-11-23 14:22] LABS: ALT/SGPT 11 U/L (12-78); AST/SGOT 15 U/L (15-37); Albumin 2.9 g/dL (3.4-5.0); Alkaline Phosphatase 108 U/L (45-117); BUN Blood Urea Nitrogen 5 mg/dL (7-18); Bicarbonate 25 mmol/L (21-32); Bilirubin Direct 0.1 mg/dL (0-0.2); Bilirubin Total 0.4 mg/dL (0.2-1.0); Glucose Level 98 mg/dL (74-106); Magnesium 2.1 mg/dL (1.8-2.4); Potassium 3.7 mmol/L (3.5-5.1); Protein, Total 6.5 g/dL (6.4-8.2); Sodium Level 139 mmol/L (136-145); Troponin I < 0.02 ng/mL (0.0-0.045)
[2019-11-23 14:24] LABS: Absolute Lymphocytes (CBC) 1.4 K/uL (0.7-4.9); Basophils % 1.5 % (0-1.3); Hematocrit 42.5 % (36.0-45.0); Lymphocytes % 11.1 % (15.3-44.8); MPV 7.7 fL (7.6-11.3)
[2019-11-23 14:25] LABS: Protime INR 1.14
--- NOTE | 2019-11-23 19:45 | RAD REPORT ---
EXAM DESCRIPTION: RAD - Chest Single View - 11/23/2019 2:53 pm CLINICAL HISTORY: CHEST PAINS Chest pain. COMPARISON: Chest Pa And Lat (2 Views) dated 12/22/2018; Chest Single View dated 05/10/2016; ABDOMEN A CUTE SERIES dated 05/14/2009; CHEST PA AND LAT 2 VIEW dated 10/13/2008; CHEST SINGLE VIEW dated 008; CHEST PA AND LAT 2 VIEW dated 07/15/2006 FINDINGS: Portable technique limits examination quality. Emphysematous changes are present throughout the lungs. The heart is upper limit of normal in size. N o displaced fractures. IMPRESSION: Prominent COPD.
--- NOTE | 2019-11-23 19:47 | RAD REPORT ---
EXAM DESCRIPTION: RAD - Foot Left 3 View - 11/23/2019 2:53 pm CLINICAL HISTORY: PAIN Trauma, pain COMPARISON: No comparisons FINDINGS: Transverse fracture is seen involving the base of the second and third metatarsals. Small fracture is also suspected base of the first metatarsal medially with adjacent soft tissue swelling.
--- NOTE | 2019-11-23 23:29 | ER ---
Nurse's Notes [facility] Name: Anh Saavedra Age: 74 yrs Sex: Female : 1945 Arrival Date: 11/23/2019 Time: 09:14 Bed 18 Private MD: Diagnosis: Displaced fracture of third metatarsal bone, left foot;Urinary tract infection, site not specified Presentation: 11/23 09:14 Presenting complaint: EMS states: Pt fell last night between toilet and bath tub, c/o ph pain to top of L foot, denies other pain or injury, also reports diarrhea, denies abdominal pain or nausea, BP elevated but pt has not taken morning meds. Transition of care: patient was not received from another setting of care. Onset of symptoms was November 23, 2019. Risk Assessment: Do you want to hurt yourself or someone else? Patient reports no desire to harm self or others. Initial Sepsis Screen: Does the patient meet any 2 criteria? No. Patient's initial sepsis screen is negative. Does the patient have a suspected source of infection? No. Patient's initial sepsis screen is negative. Care prior to arrival: IV initiated. 22 GA, in the right forearm. 09:14 Method Of Arrival: EMS: [facility] ph 09:14 Acuity: RAYA 3 ph Historical: - Allergies: 11:57 Sulfa (Sulfonamide Antibiotics); ph - Home Meds: 11:57 aspirin 81 mg Oral chew 1 tab once daily [Active]; ph - PMHx: 11:57 High Cholesterol; Hypertension; Myocardial infarction; ph - PSHx: 11:57 R nephrectomy; Cholecystectomy; surgery to L eye (detatched retina repair); Tubal ph ligation; - Immunization history:: Adult Immunizations unknown. - Social history:: Smoking status: Patient/guardian denies using tobacco. - Ebola Screening: : No symptoms or risks identified at this time. Screenin:54 Abuse screen: Denies threats or abuse. Denies injuries from another. Nutritional ph screening: No deficits noted. Tuberculosis screening: No symptoms or risk factors identified. Fall Risk Fall in past 12 months (25 points). Secondary diagnosis (15 points) dementia, IV access (20 points). Ambulatory Aid- None/Bed Rest/Nurse Assist (0 pts). Gait- Weak (10 pts.). Mental Status- Oriented to own ability (0 pts). Total Ojeda Fall Scale indicates High Risk Score (45 or more points). Fall prevention measures have been instituted. Side Rails Up X 2 Placed Close to Nursing Station Frequent Obs/Assessments Occuring Family Present and informed to notify staff if the need to leave the bedside As available patient and family educated on Fall Prevention Program and Strategies. Assessment: 09:45 General: Appears in no apparent distress. comfortable, slender, well groomed, Behavior ph is calm, cooperative, appropriate for age. Pain: Complains of pain in left foot and dorsum of left foot. Neuro: Level of Consciousness is awake, alert, obeys commands, Oriented to person, place, situation. Cardiovascular: Capillary refill < 3 seconds in bilateral fingers Patient's skin is warm and dry. Respiratory: Airway is patent Respiratory effort is even, unlabored. GI: Abdomen is flat, non-distended, Bowel sounds present X 4 quads. Abd is soft and non tender X 4 quads. Reports diarrhea, Patient currently denies abdominal pain, nausea, vomiting. Derm: Skin is intact, Skin is pink, warm \T\ dry. Musculoskeletal: Circulation, motion, and sensation intact. Range of motion: intact in all extremities, Swelling present in dorsum of left foot. 11:00 Reassessment: Patient appears in no apparent distress at this time. Patient and/or ph family updated on plan of care and expected duration. Pain level reassessed. Patient is alert, oriented x 3, equal unlabored respirations, skin warm/dry/pink. Pt resting quietly, famil;y at bedside. 12:00 Reassessment: Patient appears in no apparent distress at this time. No changes from ph previously documented assessment. Patient and/or family updated on plan of care and expected duration. Pain level reassessed. Patient is alert, oriented x 3, equal unlabored respirations, skin warm/dry/pink. 13:34 Reassessment: Patient appears in no apparent distress at this time. Patient states mg2 feeling better. Vital Signs: 09:16 BP 183 / 70; Pulse 61; Resp 18; Temp 97.8; Pulse Ox 98% on R/A; ph 10:30 BP 145 / 99; Pulse 64; Resp 18; Pulse Ox 99% on R/A; ph 11:30 BP 163 / 63; Pulse 63; Resp 16; Pulse Ox 98% on R/A; ph 13:35 BP 135 / 78; Pulse 70; Resp 18; Temp 98; Pulse Ox 100% on R/A; mg2 ED Course: 09:14 Patient arrived in ED. ph 09:16 Triage completed. ph 09:27 José Antonio Booth PA is PHCP. jr8 09:27 Al Meyers MD is Attending Physician. jr8 11:24 Orthoglass splint: Posterior short lleg splint applied on left leg. em1 11:29 Clarice Shukla, RN is Primary Nurse. ph 11:54 Patient has correct armband on for positive identification. Placed in gown. Bed in low ph position. Pulse ox on. NIBP on. Door closed. Noise minimized. Warm blanket given. 12:48 Arm band placed on Patient placed in an exam room, on a stretcher. ph 12:52 No provider procedures requiring assistance completed. mg2 12:53 Assisted to bathroom. mg2 12:58 Ernie Bond DPM is Referral Physician. jr8 13:34 IV discontinued, intact, bleeding controlled, No redness/swelling at site. Pressure mg2 dressing applied. Administered Medications: 11:30 Drug: NS 0.9% 1000 ml Route: IV; Rate: 1000 ml; Site: right forearm; ph 13:10 Follow up: Response: No adverse reaction; IV Intake: 1000ml mg2 Intake: 13:10 IV: 1000ml; Total: 1000ml. mg2 Outcome: 12:59 Discharge ordered by . jr8 13:35 Discharged to home via wheelchair, with family. mg2 13:35 Condition: stable 13:35 Discharge instructions given to patient, family, Instructed on discharge instructions, follow up and referral plans. medication usage, Demonstrated understanding of instructions, follow-up care, medications, splint care, Prescriptions given X 1. 13:35 Patient left the ED. mg2 Signatures: Perfecto Frey em1 José Antonio Booth PA PA jr8 Clarice Shukla, RN RN ph Trevor Dunn RN RN mg2
--- NOTE | 2019-11-23 23:29 | EDPHYS ---
Physician Documentation [facility] Name: Anh Saavedra Age: 74 yrs Sex: Female : 1945 Arrival Date: 11/23/2019 Time: 09:14 Bed 18 Private MD: ED Physician Al Meyers HPI: 11/23 11:06 This 74 yrs old Female presents to ER via EMS with complaints of Foot Pain, jr8 Diarrhea. 11:06 The patient presents with a contusion, decreased range of motion, pain, tenderness. The jr8 complaints affect the dorsum of left foot. Onset: The symptoms/episode began/occurred acutely, yesterday. Modifying factors: The symptoms are alleviated by nothing. the symptoms are aggravated by movement, weight bearing. Associated signs and symptoms: The patient has no apparent associated signs or symptoms. Severity of symptoms: At their worst the symptoms were moderate, in the emergency department the symptoms are unchanged. The patient has not experienced similar symptoms in the past. The patient has not recently seen a physician. Patient stated that she has been battling diarrhea for over a month. Stated that yesterday she was weak and fatigued. Had Syncopal episode and hit foot between toilet and bathtub. Complains of general weakness today and foot pain. Historical: - Allergies: 11:57 Sulfa (Sulfonamide Antibiotics); ph - Home Meds: 11:57 aspirin 81 mg Oral chew 1 tab once daily [Active]; ph - PMHx: 11:57 High Cholesterol; Hypertension; Myocardial infarction; ph - PSHx: 11:57 R nephrectomy; Cholecystectomy; surgery to L eye (detatched retina repair); Tubal ph ligation; - Immunization history:: Adult Immunizations unknown. - Social history:: Smoking status: Patient/guardian denies using tobacco. - Ebola Screening: : No symptoms or risks identified at this time. ROS: 11:06 Eyes: Negative for injury, pain, redness, and discharge, ENT: Negative for injury, jr8 pain, and discharge, Neck: Negative for injury, pain, and swelling, Cardiovascular: Negative for chest pain, palpitations, and edema, Respiratory: Negative for shortness of breath, cough, wheezing, and pleuritic chest pain, Back: Negative for injury and pain, Skin: Negative for injury, rash, and discoloration, Neuro: Negative for headache, weakness, numbness, tingling, and seizure. 11:06 Abdomen/GI: Positive for diarrhea, Negative for abdominal pain, nausea and vomiting. 11:06 MS/extremity: Positive for ecchymosis, pain, swelling, tenderness, of the dorsum of left foot. Exam: 11:06 Eyes: Pupils equal round and reactive to light, extra-ocular motions intact. Lids and jr8 lashes normal. Conjunctiva and sclera are non-icteric and not injected. Cornea within normal limits. Periorbital areas with no swelling, redness, or edema. ENT: Nares patent. No nasal discharge, no septal abnormalities noted. Tympanic membranes are normal and external auditory canals are clear. Oropharynx with no redness, swelling, or masses, exudates, or evidence of obstruction, uvula midline. Mucous membranes moist. Neck: Trachea midline, no thyromegaly or masses palpated, and no cervical lymphadenopathy. Supple, full range of motion without nuchal rigidity, or vertebral point tenderness. No Meningismus. Cardiovascular: Regular rate and rhythm with a normal S1 and S2. No gallops, murmurs, or rubs. Normal PMI, no JVD. No pulse deficits. Respiratory: Lungs have equal breath sounds bilaterally, clear to auscultation and percussion. No rales, rhonchi or wheezes noted. No increased work of breathing, no retractions or nasal flaring. Abdomen/GI: Soft, non-tender, with normal bowel sounds. No distension or tympany. No guarding or rebound. No evidence of tenderness throughout. Back: No spinal tenderness. No costovertebral tenderness. Full range of motion. Skin: Warm, dry with normal turgor. Normal color with no rashes, no lesions, and no evidence of cellulitis. Neuro: Awake and alert, GCS 15, oriented to person, place, time, and situation. Cranial nerves II-XII grossly intact. Motor strength 5/5 in all extremities. Sensory grossly intact. Cerebellar exam normal. Normal gait. 11:06 Musculoskeletal/extremity: Extremities: grossly normal except: noted in the left foot: Patient has mild swelling, bruising, and tenderness to dorsum left foot with decreased ROM, Circulation is intact in all extremities. Sensation intact. Vital Signs: 09:16 BP 183 / 70; Pulse 61; Resp 18; Temp 97.8; Pulse Ox 98% on R/A; ph 10:30 BP 145 / 99; Pulse 64; Resp 18; Pulse Ox 99% on R/A; ph 11:30 BP 163 / 63; Pulse 63; Resp 16; Pulse Ox 98% on R/A; ph 13:35 BP 135 / 78; Pulse 70; Resp 18; Temp 98; Pulse Ox 100% on R/A; mg2 MDM: 09:27 Patient medically screened. jr8 12:54 Data reviewed: vital signs, nurses notes, lab test result(s), EKG, radiologic studies, jr8 plain films. Data interpreted: Pulse oximetry: on room air is 98 %. Interpretation: normal. Counseling: I had a detailed discussion with the patient and/or guardian regarding: the historical points, exam findings, and any diagnostic results supporting the discharge/admit diagnosis, lab results, radiology results, the need for outpatient follow up, a family practitioner, a orthopedic surgeon, to return to the emergency department if symptoms worsen or persist or if there are any questions or concerns that arise at home. ED course: Patient doing well. Has UTI based on labs. No other acute findings noted on labs. Xray of foot shows fracture. Will f/u with orthopedics. Administered Medications: 11:30 Drug: NS 0.9% 1000 ml Route: IV; Rate: 1000 ml; Site: right forearm; ph 13:10 Follow up: Response: No adverse reaction; IV Intake: 1000ml mg2 Disposition: 15:51 Co-signature as Attending Physician, Al Meyers MD. ma2 Disposition: 11/23/19 12:59 Discharged to Home. Impression: Displaced fracture of third metatarsal bone, left foot, Urinary tract infection, site not specified. - Condition is Stable. - Discharge Instructions: Metatarsal Fracture, Urinary Tract Infection, Adult. - Prescriptions for Macrobid 100 mg Oral Capsule - take 1 capsule by ORAL route every 12 hours for 7 days; 14 capsule. - Medication Reconciliation Form, Thank You Letter, Antibiotic Education, Prescription Opioid Use form. - Follow up: Ernie Bond DPM; When: 5 - 6 days; Reason: Recheck today's complaints, Continuance of care, Re-evaluation by your physician. - Problem is new. - Symptoms have improved. Signatures: José Antonio Booth PA PA jr8 Clarice Shukla RN RN ph Al Meyers MD MD ma2 Trevor Dunn RN RN mg2 Corrections: (The following items were deleted from the chart) 13:35 12:59 11/23/2019 12:59 Discharged to Home. Impression: Displaced fracture of third mg2 metatarsal bone, left foot; Urinary tract infection, site not specified. Condition is Stable. Forms are Medication Reconciliation Form, Thank You Letter, Antibiotic Education, Prescription Opioid Use. Follow up: Dr. Ernie Bond; When: 5 - 6 days; Reason: Recheck today's complaints, Continuance of care, Re-evaluation by your physician. Problem is new. Symptoms have improved. jr8
== END 2019-11-23 13:35 | disposition home or self-care (01) ==
LOC: ER 13:35
DX: S92.332A Displaced fracture of third metatarsal bone, left foot, initial encounter for closed fracture (principal); W22.8XXA Striking against or struck by other objects, initial encounter; Y93.9 Activity, unspecified; Y92.9 Unspecified place or not applicable; N39.0 Urinary tract infection, site not specified; I10 Essential (primary) hypertension; I25.2 Old myocardial infarction; Z79.82 Long term (current) use of aspirin; Z88.2 Allergy status to sulfonamides
CPT/HCPCS: 85025; 80048; 36415; 83735; 85610; 80076; 85730; 84484; 71045; 73630; 99284; J7030

== ENCOUNTER 2022-04-28 08:57 | Emergency (ER) | payer OTHER ==
--- OUTSIDE RECORDS SUMMARY | 2022-04-28 09:01 | XMS REPORT | Continuity of Care Document ---
:1945 Author Organization [facility] t Address [address] [place] [address] Care Team Providers Name Role Phone Luz Attending Clinician Unavailable JM WADDELL Attending Clinician Unavailable Nuha DALLAS Attending Clinician 3 Attending Clinician Unavailable Margo DALLAS, T Attending Clinician Claire DALLAS Attending Clinician JM WADDELL Admitting Clinician Unavailable Payers Payer Name Policy Type Policy Number Effective Date Expiration Date S marek UNITED MEDICARE [id number] 2018 O 00:00:00 Problems Condition Condition Condition Status Onset Resolution Last Treating Co mments Source Name Details Category Date Date Treatment Clinician Date No known No known Disease [facility] active active [place] problems problems of Medicin e Allergies, Adverse Reactions, Alerts Allergy Allergy Status Severity Reaction(s) Onset Inactive Treating Comm ents Source Name Type Date Date Clinician SULFA [facility]ergy Active [facility]OT 00 [facility]) Sulfa Propensi Active [facility] Antibiot ty to 5-16 College ics adverse 00:00: of reaction 00 Medicin s to e drug Social History Social Habit Start Date Stop Date Quantity Comments Source Sex Assigned At [facility] Co llege of Medicine Tobacco use and 2020-01-18 2020-01-18 Former user [facility] C ollege exposure 00:00:00 00:00:00 of Medicine Tobacco Comment 2019-04-15 2019-04-15 stopped 10 yrs [facility] 00:00:00 00:00:00 ago of Medicine Smoking Status Start Date Stop Date Source Former smoker 2020-01-18 00:00:00 2020-01-18 00:00:00 [facility] kellyge of Medicine Medications Ordered Filled Start Stop Current Ordering Indication Dosage Frequency Signature Comments Components Source Medication Medication Date Date Medication? Clinician (SIG) Name Name Teriparatid 2020-0 Yes .08mL 0.08 mL. [facility] e, 8 College Recombinant 19:23: of , (FORTEO) 34 Medicin 600 e MCG/2.4ML SOLN aspirin 81 2020-0 Yes 81mg Take 81 mg [facility] MG tablet 8 by mouth Colleg e 19:22: daily. of 20 Medicin e Calcium 2020-0 Yes Take by [facility] Carb-Cholec 8- mouth. Colleg e alciferol 19:22: of (CALCIUM 20 Medicin 600 + D OR) e POTASSIUM 2020-0 Yes Take by [facility] or GLUCONATE 8-04 mouth. [place] OR 19:22: of 20 Medicin e Cholecalcif 2020-0 Yes Take by Tim lewis alice 8-04 mouth. [place] (VITAMIN 19:22: of D3) 1000 20 Medicin units CAPS e Cyanocobala 2020-0 Yes Take by Tim lewis min (B-12) 8-04 mouth. [place] 100 MCG 19:22: of TABS 20 Medicin e NIACIN-50 2020-0 Yes Take by [facility] or OR 8-04 mouth. [place] 19:22: of 20 Medicin e carvedilol 2020-0 2020- No 6.25mg Take 6.25 [facility] (COREG) 8-04 08-04 mg by [place] 6.25 MG 19:21: 00:00 mouth 2 of tablet 39 :00 times Medicin daily e (with meals). galantamine 2020-0 Yes Take by Tim lewis 12 MG TABS 8-04 mouth. [place] 19:21: of 19 Medicin e carvedilol 2020-0 Yes TK 1 T PO Tim lewis (COREG) 7-12 BID [place] 12.5 MG 00:00: of tablet 00 Medicin e erythromyci 2020-[address] a [facility] opt 1-30 [facility] (ROMYCIN) 00:00: strip in of ophthalmic 00 the left Medic in ointment eye at e bedtime erythromyci 2020-[address] a [place] [facility] opth 12-30 [facility] (ROMYCIN) 00:00: strip in of ophthalmic 00 the left Medic in ointment eye at e bedtime erythromyci 2020-[address] a [place] [facility] opth 12-30 [facility] (ROMYCIN) 00:00: strip in of ophthalmic 00 the left Medic in ointment eye at e bedtime furosemide 2019- Yes 20mg Take 20 mg [facility] (LASIX) 20 9-17 by mouth Colle ge MG tablet 14:17: daily. of 40 Medicin e carvedilol 2019 Yes 6.25mg Take 6.25 [facility] (COREG) 9-17 mg by College 6.25 MG 14:17: mouth 2 of tablet 40 times Medicin daily e (with meals). galantamine Yes Take by [facility] 12 MG TABS 9-17 mouth. [place] 14:17: of 40 Medicin e aspirin 81 2018- Yes 81mg Take 81 mg [facility] MG tablet 17 by mouth Colleg e 14:17: daily. of 40 Medicin e Calcium Yes Take by [facility] Carb-Cholec -17 mouth. Colleg e alciferol 14:17: of (CALCIUM 40 Medicin 600 + D OR) e POTASSIUM 0 Yes Take by [facility] or GLUCONATE -17 mouth. [place] OR 14:17: of 40 Medicin e Cholecalcif 2019-0 Yes Take by Tim lewis alice -17 mouth. [place] (VITAMIN 14:17: of D3) 1000 40 Medicin units CAPS e Cyanocobala 2019 Yes Take by Tim lewis min (B-12) -17 mouth. [place] 100 MCG 14:17: of TABS 40 Medicin e NIACIN-50 2018-0 Yes Take by [facility] or OR -17 mouth. College 14:17: of 40 Medicin e carvedilol 2019-0 Yes 6.25mg Take 6.25 [facility] (COREG) 9-17 mg by [place] 6.25 MG 14:17: mouth 2 of tablet 40 times Medicin daily e (with meals). galantamine 2019-0 Yes Take by [facility] 12 MG TABS 9-17 mouth. College 14:17: of 40 Medicin e aspirin 81 2019-0 Yes 81mg Take 81 mg [facility] MG tablet 9-17 by mouth Colleg e 14:17: daily. of 40 Medicin e furosemide 2019-0 Yes 20mg Take 20 mg [facility] (LASIX) 20 9-17 by mouth Colle ge MG tablet 14:17: daily. of 40 Medicin e Calcium 2019-0 Yes Take by [facility] Carb-Cholec 9-17 mouth. Colleg e alciferol 14:17: of (CALCIUM 40 Medicin 600 + D OR) e POTASSIUM 2018-0 Yes Take by [facility] or GLUCONATE -17 mouth. [place] OR 14:17: of 40 Medicin e Cholecalcif Yes Take by [facility] alice -17 mouth. [place] (VITAMIN 14:17: of D3) 1000 40 Medicin units CAPS e Cyanocobala 2018-0 Yes Take by [facility] min (B-12) -17 mouth. College 100 MCG 14:17: of TABS 40 Medicin e NIACIN-50 0 Yes Take by [facility] or OR -17 mouth. College 14:17: of 40 Medicin e furosemide 0 Yes 20mg Take 20 mg [facility] (LASIX) 20 9-17 by mouth Colle ge MG tablet 14:17: daily. of 40 Medicin e carvedilol 0 Yes 6.25mg Take 6.25 [facility] (COREG) 9-17 mg by College 6.25 MG 14:17: mouth 2 of tablet 40 times Medicin daily e (with meals). galantamine 20190 Yes Take by [facility] 12 MG TABS -17 mouth. College 14:17: of 40 Medicin e aspirin 81 2018-0 Yes 81mg Take 81 mg [facility] MG tablet 9-17 by mouth Colleg e 14:17: daily. of 40 Medicin e Calcium 2019-0 Yes Take by [facility] Carb-Cholec 9-17 mouth. Colleg e alciferol 14:17: of (CALCIUM 40 Medicin 600 + D OR) e POTASSIUM 2019-0 Yes Take by [facility] or GLUCONATE -17 mouth. [place] OR 14:17: of 40 Medicin e Cholecalcif 2019-0 Yes Take by [facility] alice 9-17 mouth. [place] (VITAMIN 14:17: of D3) 1000 40 Medicin units CAPS e Cyanocobala 2019-0 Yes Take by [facility] min (B-12) 9-17 mouth. [place] 100 MCG 14:17: of TABS 40 Medicin e NIACIN-50 2019-0 Yes Take by [facility] or OR 9-17 mouth. [place] 14:17: of 40 Medicin e furosemide 2019-0 Yes 20mg Take 20 mg [facility] (LASIX) 20 9-17 by mouth Colle ge MG tablet 14:17: daily. of 40 Medicin e carvedilol 2019-0 Yes 6.25mg Take 6.25 [facility] (COREG) 9-17 mg by College 6.25 MG 14:17: mouth 2 of tablet 40 times Medicin daily e (with meals). galantamine 2019-0 Yes Take by [facility] 12 MG TABS 9-17 mouth. [place] 14:17: of 40 Medicin e aspirin 81 2019-0 Yes 81mg Take 81 mg [facility] MG tablet 17 by mouth Colleg e 14:17: daily. of 40 Medicin e Calcium 2019-0 Yes Take by [facility] Carb-Cholec -17 mouth. Colleg e alciferol 14:17: of (CALCIUM 40 Medicin 600 + D OR) e POTASSIUM 0 Yes Take by [facility] or GLUCONATE 9-17 mouth. [place] OR 14:17: of 40 Medicin e Cholecalcif 2019-0 Yes Take by [facility] alice 9-17 mouth. [place] (VITAMIN 14:17: of D3) 1000 40 Medicin units CAPS e Cyanocobala 2019-0 Yes Take by [facility] min (B-12) 9-17 mouth. [place] 100 MCG 14:17: of TABS 40 Medicin e NIACIN-50 2019-0 Yes Take by [facility] or OR 9-17 mouth. [place] 14:17: of 40 Medicin e furosemide 2019-0 Yes 20mg Take 20 mg [facility] (LASIX) 20 9-17 by mouth Colle ge MG tablet 14:17: daily. of 40 Medicin e memantine 2019-0 Yes [facility] (NAMENDA) 5 8-16 College MG tablet 00:00: of 00 Medicin e memantine 2019-0 Yes [facility] (NAMENDA) 5 8-16 College MG tablet 00:00: of 00 Medicin e memantine 2019-0 Yes [facility] (NAMENDA) 5 8-16 College MG tablet 00:00: of 00 Medicin e memantine 2019-0 Yes [facility] (NAMENDA) 5 8-16 College MG tablet 00:00: of 00 Medicin e memantine 2019-0 Yes [facility] (NAMENDA) 5 8-16 College MG tablet 00:00: of 00 Medicin e prednisoLON 2019-0 Yes 1[drp] Place 1 [facility] acetate 6-06 Drop into Colle ge (PRED 00:00: the left of FORTE) 1 % 00 eye four Medic in ophthalmic times e suspension daily. Shake well before each use prednisoLON 2019-0 Yes 1[drp] Place 1 [facility] acetate 6-06 Drop into Colle ge (PRED 00:00: the left of FORTE) 1 % 00 eye four Medic in ophthalmic times e suspension daily. Shake well before each use prednisoLON 2019-0 Yes 1[drp] Place 1 [facility] acetate 6-06 Drop into Colle ge (PRED 00:00: the left of FORTE) 1 % 00 eye four Medic in ophthalmic times e suspension daily. Shake well before each use prednisoLON 2019-0 2020- No 1[drp] Place 1 [facility] E acetate 6-06 02-18 Drop into Radhika ege (PRED 00:00: 00:00 the left of FORTE) 1 % 00 :00 eye four Medic in ophthalmic times e suspension daily. Shake well before each use cephALEXin 2019-0 Yes 500mg Take 1 Cap [facility] (KEFLEX) 5-21 by mouth College 500 MG 00:00: two times of capsule 00 daily. Medicin e cephALEXin 2019-0 Yes 500mg Take 1 Cap [facility] (KEFLEX) 5-21 by mouth College 500 MG 00:00: two times of capsule 00 daily. Medicin e prednisoLON 2019-0 Yes 1[drp] Place 1 [facility] acetate 5-21 Drop into Colle ge (PRED 00:00: the left of FORTE) 1 % 00 eye four Medic in ophthalmic times e suspension daily. Shake well before instillati on cephALEXin 2019-0 Yes 500mg Take 1 Cap [facility] (KEFLEX) 5-21 by mouth College 500 MG 00:00: two times of capsule 00 daily. Medicin e tobramycin 2019-0 Yes 1[drp] Place 1 [facility] (TOBREX) 5-21 Drop into Colleg e 0.3 % 00:00: the left of ophthalmic 00 eye four Medic in solution times e daily. prednisoLON Yes 1[drp] Place 1 [facility] E acetate 5-21 Drop into Colle ge (PRED 00:00: the left of FORTE) 1 % 00 eye four Medic in ophthalmic times e suspension daily. Shake well before instillati on cephALEXin Yes 500mg Take 1 Cap [facility] (KEFLEX) 5-21 by mouth College 500 MG 00:00: two times of capsule 00 daily. Medicin e tobramycin Yes 1[drp] Place 1 [facility] (TOBREX) 5-21 Drop into Colleg e 0.3 % 00:00: the left of ophthalmic 00 eye four Medic in solution times e daily. prednisoLON Yes 1[drp] Place 1 [facility] E acetate 5-21 Drop into Colle ge (PRED 00:00: the left of FORTE) 1 % 00 eye four Medic in ophthalmic times e suspension daily. Shake well before instillati on cephALEXin Yes 500mg Take 1 Cap [facility] (KEFLEX) 5-21 by mouth College 500 MG 00:00: two times of capsule 00 daily. Medicin e tobramycin Yes 1[drp] Place 1 [facility] (TOBREX) 5-21 Drop into Colleg e 0.3 % 00:00: the left of ophthalmic 00 eye four Medic in solution times e daily. prednisoLON 2020- No 1[drp] Place 1 [facility] E acetate 5-21 02-18 Drop into Radhika ege (PRED 00:00: 00:00 the left of FORTE) 1 % 00 :00 eye four Medic in ophthalmic times e suspension daily. Shake well before instillati on tobramycin 2020- No 1[drp] Place 1 [facility] (TOBREX) 5-21 02-18 Drop into Colle ge 0.3 % 00:00: 00:00 the left of ophthalmic 00 :00 eye four Medic in solution times e daily. Aspir-81 Aspir-81 Yes Kai 1 tablet C ommon [facility] Furosemide Furosemide Yes Kai 1 tablet Common Luz [facility] Calcium Calcium Yes Kai 1 tablet Com mon Luz with meals [facility] Niacin Niacin Yes Kai 1 tablet Commo n Luz with food [facility] Klor-Con Klor-Con Yes Kai 1 tablet C ommon M20 M20 Luz with food [facility] Galantamine Galantamine Yes Kai 1 tablet Common Hydrobromid Hydrobromid Luz with meals Spirit e e [facility] Coreg Coreg Yes Kai 1 tab Common Luz [facility] Namenda Namenda Yes Kai 1 tablet Com mon Luz [facility] Vitamin B12 Vitamin B12 Yes Kai 1 tablet Common [facility] Prolia Prolia 2018- No Kai as Common 06-10 Luz directed Spirit 00:00 - [facility] :00 [facility] Procedures Procedure Date / Time Performed Performing Clinician [facility] e B-SCAN ULTRASOUND - OS 2020-07-04 19:10:06 Candy Breen [facility] - [facility] EYE Medicine OCT, RETINA - OS - LEFT 2020-07-04 18:49:27 Candy Breen [facility] EYE [facility] OCT, RETINA - OS - LEFT 2019-08-17 14:36:28 Candy Breen [facility] EYE [facility] Plan of Care Planned Activity Planned Date Details Comments Source Future Scheduled Test COLON CANCER SCREENING: [facility] COLONOSCOPY [code = Medicine COLON CANCER SCREENING: COLONOSCOPY] Future Scheduled Test MAMMOGRAM ANNUAL [code [facility] = MAMMOGRAM ANNUAL] Medicine Future Scheduled Test TETANUS SHOT (ADULT) [facility] [code = TETANUS SHOT Medicin e (ADULT)] Future Scheduled Test HEPATITIS C SCREENING [facility] [code = HEPATITIS C Medicine SCREENING] Future Scheduled Test FALL SCREEN [code = [facility] FALL SCREEN] Medicine Future Scheduled Test OSTEOPOROSIS SCREENING [facility] [code = OSTEOPOROSIS Medicin e SCREENING] Future Scheduled Test PNEUMOVAX >=65 (PPSV23) [facility] [code = PNEUMOVAX >=65 Medic ine (PPSV23)] Future Scheduled Test PREVNAR >= 65 (PCV13) [facility] [code = PREVNAR >= 65 Medici ne (PCV13)] Future Scheduled Test MEDICARE AWV (Initial) [facility] [code = MEDICARE AWV Medicin e (Initial)] Future Scheduled Test FLU VACCINE > 6 MONTHS [facility] [code = FLU VACCINE > 6 Medi cine MONTHS] Future Scheduled Test COLON CANCER SCREENING: [facility] COLONOSCOPY [code = Medicine COLON CANCER SCREENING: COLONOSCOPY] Future Scheduled Test MAMMOGRAM ANNUAL [code [facility] of = MAMMOGRAM ANNUAL] Medicine Future Scheduled Test TETANUS SHOT (ADULT) [facility] [code = TETANUS SHOT Medicin e (ADULT)] Future Scheduled Test HEPATITIS C SCREENING [facility] [code = HEPATITIS C Medicine SCREENING] Future Scheduled Test FALL SCREEN [code = [facility] FALL SCREEN] Medicine Future Scheduled Test OSTEOPOROSIS SCREENING [facility] [code = OSTEOPOROSIS Medicin e SCREENING] Future Scheduled Test PNEUMOVAX >=65 (PPSV23) [facility] [code = PNEUMOVAX >=65 Medic ine (PPSV23)] Future Scheduled Test MEDICARE AWV (Initial) [facility] [code = MEDICARE AWV Medicin e (Initial)] Future Scheduled Test FLU VACCINE > 6 MONTHS [facility] [code = FLU VACCINE > 6 Medi cine MONTHS] Future Scheduled Test COLON CANCER SCREENING: [facility] COLONOSCOPY [code = Medicine COLON CANCER SCREENING: COLONOSCOPY] Future Scheduled Test MAMMOGRAM ANNUAL [code [facility] = MAMMOGRAM ANNUAL] Medicine Future Scheduled Test MEDICARE AWV [code = [employer] MEDICARE AWV] Medicine Future Scheduled Test TETANUS SHOT (ADULT) [facility] [code = TETANUS SHOT Medicin e (ADULT)] Future Scheduled Test HEPATITIS C SCREENING [facility] [code = HEPATITIS C Medicine SCREENING] Future Scheduled Test FALL SCREEN [code = [facility] FALL SCREEN] Medicine Future Scheduled Test OSTEOPOROSIS SCREENING [facility] [code = OSTEOPOROSIS Medicin e SCREENING] Future Scheduled Test PNEUMOVAX >=65 (PPSV23) [facility] [code = PNEUMOVAX >=65 Medic ine (PPSV23)] Future Scheduled Test PREVNAR >= 65 (PCV13) [facility] [code = PREVNAR >= 65 Medici ne (PCV13)] Future Scheduled Test FLU VACCINE > 6 MONTHS [facility] [code = FLU VACCINE > 6 Medi cine MONTHS] Future Scheduled Test COLON CANCER SCREENING: [facility] COLONOSCOPY [code = Medicine COLON CANCER SCREENING: COLONOSCOPY] Future Scheduled Test MAMMOGRAM ANNUAL [code [facility] of = MAMMOGRAM ANNUAL] Medicine Future Scheduled Test MEDICARE AWV [code = [facility] of MEDICARE AWV] Medicine Future Scheduled Test TETANUS SHOT (ADULT) [facility] [code = TETANUS SHOT Medicin e (ADULT)] Future Scheduled Test HEPATITIS C SCREENING [facility] [code = HEPATITIS C Medicine SCREENING] Future Scheduled Test FALL SCREEN [code = [facility] of FALL SCREEN] Medicine Future Scheduled Test OSTEOPOROSIS SCREENING [facility] [code = OSTEOPOROSIS Medicin e SCREENING] Future Scheduled Test PNEUMOVAX >=65 (PPSV23) [facility] [code = PNEUMOVAX >=65 Medic ine (PPSV23)] Future Scheduled Test PREVNAR >= 65 (PCV13) [facility] [code = PREVNAR >= 65 Medici ne (PCV13)] Future Scheduled Test FLU VACCINE > 6 MONTHS [facility] [code = FLU VACCINE > 6 Medi cine MONTHS] Future Scheduled Test COLON CANCER SCREENING: [facility] COLONOSCOPY [code = Medicine COLON CANCER SCREENING: COLONOSCOPY] Future Scheduled Test MAMMOGRAM ANNUAL [code [facility] of = MAMMOGRAM ANNUAL] Medicine Future Scheduled Test TETANUS SHOT (ADULT) [facility] [code = TETANUS SHOT Medicin e (ADULT)] Future Scheduled Test HEPATITIS C SCREENING [facility] [code = HEPATITIS C Medicine SCREENING] Future Scheduled Test FALL SCREEN [code = [facility] of FALL SCREEN] Medicine Future Scheduled Test OSTEOPOROSIS SCREENING [facility] [code = OSTEOPOROSIS Medicin e SCREENING] Future Scheduled Test PNEUMOVAX >=65 (PPSV23) [facility] [code = PNEUMOVAX >=65 Medic ine (PPSV23)] Future Scheduled Test PREVNAR >= 65 (PCV13) [facility] [code = PREVNAR >= 65 Medici ne (PCV13)] Future Scheduled Test MEDICARE AWV (Initial) [facility] [code = MEDICARE AWV Medicin e (Initial)] Future Scheduled Test FLU VACCINE > 6 MONTHS [facility] [code = FLU VACCINE > 6 Medi cine MONTHS] Encounters Start End Encounter Admission Attending Care Care Encounter Source Date/Time Date/Time Type Type Clinicians Facility Department ID 2021-12-26 Outpatient EFFIE Luz [facility] [id number] Common 11:58:00 [facility] [id number] [facility] 2021-12-26 Outpatient Luz, STLMLC STLC Common 11:57:34 Kai [id number] [facility] 2021-12-26 Outpatient Luz, STLMLC STLMLC Common 11:15:19 Kai [id number] [facility] 2021-12-26 Outpatient Luz, STLMLC STLMLC Common 11:14:17 Kai [id number] [facility] 2021-09-04 Outpatient LAZARUS WADDELL Surgery [id number] [facility] 13:55:38 LOREN 2020-09-21 2020-09-21 Outpatient STLMLC STLC [id number] Common 00:00:00 00:00:00 [facility] 2020-08-31 2020-08-31 Outpatient STLMLC STLC [id number] Common 00:00:00 00:00:00 [facility] 2020-07-04 2020-07-04 Office Candy Breen [id number] [facility] 13:39:07 14:04:07 Visit 3, Ods AMBULATOR [id number] College Y [id number] of [id number] Medi nikole 300 e 2020-06-21 2020-06-21 Outpatient STLMLC STLC [id number] Common 00:00:00 00:00:00 [facility] 2020-02-24 2020-02-24 Outpatient [facility] SLE [id number] [facility] 00:00:00 00:00:00 [id number] 2020-02-23 2020-02-23 [facility] [id number] Common 14:00:00 14:00:00 [place] [facility] [employer] [facility] 2020-01-18 2020-01-18 Office ANIYA Waddell [id number] [facility] 10:01:30 10:06:30 Visit Loren Vaughan AMBULATOR [id number] College Y [id number] of [id number] Medi nikole 300 e 2019-12-30 2019-12-30 Office ANIYA Rangel [id number] [facility] 14:51:50 16:52:17 Visit Cori AMBULATOR [id number] College Y [id number] of [id number] [facility] nikole 300 e 2019-11-11 2019-11-11 [facility]patient [facility] [id number] Common 10:30:00 10:30:[address] [facility] 2019-11-03 2019-11-03 [facility] [id number] Common 17:07:00 17:07:[address] [facility] 2019-09-13 2019-09-13 [facility]patient [facility] [id number] Common 11:45:00 11:45:[address] [facility] 2019-08-25 2019-08-25 Outpatient [facility] [id number] Common 15:00:00 15:00:[address] [facility] 2019-08-24 2019-08-24 Outpatient [facility] [id number] Common 15:47:00 15:47:[address] [facility] 2019-08-17 2019-08-17 Office SANDIE Waddell [id number] [facility] 10:31:21 10:46:21 Visit Loren Vaughan AMBULATOR [id number] College Y [id number] of [id number] [facility] nikole 300 e 2019-08-17 2019-08-17 Office NuhaSANDIE johnson [id number] [facility] 08:50:24 09:05:24 Visit Candy AMBULATOR [id number] College Y [id number] of [id number] [facility] nikole 300 e 2019-05-24 2019-05-24 Outpatient Yasmine [facility] [id number] Common 16:30:00 16:30:[address] [facility] 2019-01-28 2019-01-28 [facility] [id number] Common 13:57:00 13:57:[address] [facility] 2019-01-28 2019-01-28 [facility]patient [facility] [id number] Common 10:15:00 10:15:[address] [facility] 2019-01-07 2019-01-07 [facility] [id number] Common 16:48:00 16:48:[address] [facility] 2019-01-07 2019-01-07 [facility] [id number] Common 13:26:00 13:26:[address] [facility] 2018-12-31 2018-12-31 [facility] [id number] Common 11:30:00 11:30:[address] [facility] 2018-11-18 2018-11-18 Outpatient [facility] [id number] Common 15:43:00 15:43:[address] [facility] 2018-06-22 2018-06-22 [facility]patient [facility] [id number] Common 13:45:00 13:45:[address] [facility] 2018-06-15 2018-06-15 [facility]patient [facility] [id number] Common 09:15:00 09:15:[address] [facility] 2018-03-10 2018-03-10 [facility] [id number] Common 08:30:00 08:30:[address] [facility] Results Test Description Test Time Test Comments Results Result [facility] wandy Comments B-SCAN ULTRASOUND 2020-07-04 B-scan [facility] - OS - LEFT EYE 20:39:49 ultrasound: of Medic ine attached and clear cavity OCT, RETINA - OS 2020-07-04 [facility] 20:39:06 OCTOD: 290, of Medicine drusen, no fluidOS: no view OCT, RETINA - OS 2019-08-17 [place] [facility] Safia mendozage - LEFT EYE 15:17:05 OCTOD: 268, of Medicine wnlOS: no view
[2022-04-28] MEDS ORDERED: NA CHLORIDE 0.9% 100 ML ONE (10:10)
[2022-04-28] MEDS ORDERED: CEFAZOLIN SODIUM 1 GM/VIAL ONE (10:10)
[2022-04-28] MEDS ORDERED: METHYLPREDNISOLONE 125 MG INJ ONE (10:10)
[2022-04-28 10:22] LABS: Absolute Lymphocytes (CBC) 2.2 K/uL (0.7-4.9); Hematocrit 46.3 % (36.0-45.0); Lymphocytes % 23.6 % (15.3-44.8); MPV 7.1 fL (7.6-11.3)
--- NOTE | 2022-04-28 11:38 | RAD REPORT ---
EXAM DESCRIPTION: US - Extremity Venous Uni Ltd - 04/28/2022 11:11 am CLINICAL HISTORY: Pain Right arm swelling and edema. COMPARISON: No comparisons FINDINGS: Right upper extremity venous system was interrogated with Doppler technique. Normal flow, compressibility and augmentation was noted. There is no DVT present.Right internal jugular vein was n ot well seen. IMPRESSION: No evidence of right upper extremity deep venous thrombosis.
--- NOTE | 2022-04-28 11:58 | EDPHYS ---
Physician Documentation [facility] Name: Anh Saavedra Age: 77 yrs Sex: Female : 1945 Arrival Date: 04/28/2022 Time: 09:00 Bed 5 Private MD: ED Physician Charly Plummer HPI: 04/28 16:30 This 77 yrs old Female presents to ER via Ambulatory with complaints of Arm Problem, kdr Skin Problem - redness. 16:30 The patient or guardian complains of pain, that is acute, swelling, tenderness. The kdr complaints affect the dorsal aspect of right forearm and palmar aspect of right forearm. Context: The problem was sustained at home, resulted from unknown cause, Possible bug bite from an insect. Onset: The symptoms/episode began/occurred gradually, yesterday. Treatment prior to arrival includes: no previous treatment. Modifying factors: The symptoms are alleviated by nothing. the symptoms are aggravated by nothing. Associated signs and symptoms: Pertinent positives: erythema, swelling, warmth. Severity of symptoms: At their worst the symptoms were mild, moderate, just prior to arrival, in the emergency department the symptoms are unchanged. The patient has not experienced similar symptoms in the past. The patient has not recently seen a physician. Historical: - Allergies: 09:12 Sulfa (Sulfonamide Antibiotics); iw - PMHx: 09:12 High Cholesterol; Hypertension; Myocardial infarction; Dementia; iw - Immunization history:: Adult Immunizations unknown. - Social history:: Smoking status: unknown. ROS: 16:30 Constitutional: Negative for fever, chills, and weight loss, Eyes: Negative for injury, kdr pain, redness, and discharge, ENT: Negative for injury, pain, and discharge, Neck: Negative for injury, pain, and swelling, Cardiovascular: Negative for chest pain, palpitations, and edema, Respiratory: Negative for shortness of breath, cough, wheezing, and pleuritic chest pain, Abdomen/GI: Negative for abdominal pain, nausea, vomiting, diarrhea, and constipation, Back: Negative for injury and pain, : Negative for injury, bleeding, discharge, and swelling, Neuro: Negative for headache, weakness, numbness, tingling, and seizure activity. Psych: Negative for depression, anxiety, suicide ideation, homicidal ideation, and hallucinations, Allergy/Immunology: Negative for hives, rash, and allergies, Endocrine: Negative for neck swelling, polydipsia, polyuria, polyphagia, and marked weight changes, Hematologic/Lymphatic: Negative for swollen nodes, abnormal bleeding, and unusual bruising. 16:30 MS/extremity: Positive for Exam: 16:30 Constitutional: This is a well developed, well nourished patient who is awake, alert, kdr and in no acute distress. Head/Face: Normocephalic, atraumatic. Chest/axilla: Normal chest wall appearance and motion. Nontender with no deformity. No lesions are appreciated. Cardiovascular: Regular rate and rhythm with a normal S1 and S2. No gallops, murmurs, or rubs. Normal PMI, no JVD. No pulse deficits. Respiratory: Lungs have equal breath sounds bilaterally, clear to auscultation and percussion. No rales, rhonchi or wheezes noted. No increased work of breathing, no retractions or nasal flaring. 16:30 Skin: cellulitis, that is moderate, that is severe, confluent, induration, located on the . Vital Signs: 09:11 BP 186 / 99; Pulse 105; Resp 16; Temp 98.9; Pulse Ox 99% on R/A; iw 10:58 BP 176 / 96; Pulse 71; Resp 16; Pulse Ox 99% ; jd3 MDM: 11:57 Patient medically screened. kdr 16:33 Data reviewed: vital signs, nurses notes, lab test result(s), radiologic studies. kdr Counseling: I had a detailed discussion with the patient and/or guardian regarding: the historical points, exam findings, and any diagnostic results supporting the discharge/admit diagnosis. 04/28 09:46 Order name: CBC with Diff; Complete Time: 10:51 kdr 04/28 09:46 Order name: Chem 7; Complete Time: 10:26 kdr 04/28 09:46 Order name: US Extremity Venous Unilateral Ltd; Complete Time: 11:55 kdr Administered Medications: 10:00 Drug: SOLU-Medrol (methylPrednisoLONE) 60 mg Route: IVP; Site: left forearm; jl7 11:00 Follow up: Response: No adverse reaction jd3 10:02 Drug: Ancef (cefazolin) 1 grams Route: IVPB; Site: left forearm; jl7 11:00 Follow up: Response: No adverse reaction; IV Status: Completed infusion jd3 Disposition Summary: 04/28/22 11:57 Discharge Ordered Location: Home kdr Problem: new kdr Symptoms: have improved kdr Condition: Stable kdr Diagnosis - Cellulitis of right upper limb kdr - Localized swelling, mass and lump, right upper limb kdr Followup: kdr - With: Private Physician - When: 2 - 3 days - Reason: If symptoms return, Further diagnostic work-up, Recheck today's complaints, Continuance of care, Re-evaluation by your physician Discharge Instructions: - Discharge Summary Sheet kdr - Cellulitis, Adult kdr Forms: - Medication Reconciliation Form kdr - Thank You Letter kdr - Antibiotic Education kdr Prescriptions: - Benadryl 25 mg Oral Capsule - take 1 capsule by ORAL route every 8 hours As needed; 15 tablet; Refills: 0, kdr Product Selection Permitted - Cephalexin 500 mg Oral Capsule - take 1 capsule by ORAL route every 8 hours for 10 days; 30 capsule; Refills: 0, kdr Product Selection Permitted Signatures: Dispatcher [employer] Charly Garcia MD MD kdr Patricia Beth RN RN iw Conrado Lowery RN RN jl7 Antonio Santana RN RN jd3
--- NOTE | 2022-04-28 11:58 | ER ---
Nurse's Notes [facility] Name: Anh Saavedra Age: 77 yrs Sex: Female : 1945 Arrival Date: 04/28/2022 Time: 09:00 Bed 5 Private MD: Diagnosis: Cellulitis of right upper limb;Localized swelling, mass and lump, right upper limb Presentation: 04/28 09:11 Chief complaint: Spouse and/or significant other states: redness, swelling to RFA for iw past day and half. Coronavirus screen: At this time, the client does not indicate any symptoms associated with coronavirus-19. Ebola Screen: Patient negative for fever greater than or equal to 101.5 degrees Fahrenheit, and additional compatible Ebola Virus Disease symptoms Patient denies exposure to infectious person. Patient denies travel to an Ebola-affected area in the 21 days before illness onset. No symptoms or risks identified at this time. Initial Sepsis Screen: Does the patient meet any 2 criteria? No. Patient's initial sepsis screen is negative. Does the patient have a suspected source of infection? No. Patient's initial sepsis screen is negative. Risk Assessment: Do you want to hurt yourself or someone else? Patient reports no desire to harm self or others. Onset of symptoms was April 26, 2022. 09:11 Method Of Arrival: Ambulatory iw 09:11 Acuity: RAYA 3 iw Historical: - Allergies: 09:12 Sulfa (Sulfonamide Antibiotics); iw - PMHx: 09:12 High Cholesterol; Hypertension; Myocardial infarction; Dementia; iw - Immunization history:: Adult Immunizations unknown. - Social history:: Smoking status: unknown. Screenin:22 Abuse screen: Denies threats or abuse. Nutritional screening: No deficits noted. jd3 Tuberculosis screening: No symptoms or risk factors identified. Fall Risk Ambulatory Aid- None/Bed Rest/Nurse Assist (0 pts). Gait- Normal/Bed Rest/Wheelchair (0 pts) Mental Status- Oriented to own ability (0 pts). Total Ojeda Fall Scale indicates No Risk (0-24 pts). Assessment: 10:30 General: Appears in no apparent distress. comfortable, Behavior is calm, cooperative, jd3 appropriate for age. Pain: Complains of pain in right forearm Quality of pain is described as stinging. Neuro: Merino Agitation-Sedation Scale (RASS): 0 - Alert and Calm Level of Consciousness is awake, alert, obeys commands, Oriented to person, place, time, situation. Cardiovascular: Denies chest pain, Capillary refill < 3 seconds Patient's skin is warm and dry. Respiratory: Airway is patent Respiratory effort is even, unlabored, Respiratory pattern is regular, symmetrical, Denies cough, shortness of breath. GI: No signs and/or symptoms were reported involving the gastrointestinal system. : No signs and/or symptoms were reported regarding the genitourinary system. EENT: No signs and/or symptoms were reported regarding the EENT system. Derm: Skin is intact, Skin is dry, Skin is normal, Skin temperature is warm Rash noted that is itchy, red, on right forearm. Musculoskeletal: No signs and/or symptoms reported regarding the musculoskeletal system. 10:58 Reassessment: No changes from previously documented assessment. Patient and/or family jd3 updated on plan of care and expected duration. Pain level reassessed. Patient is alert, oriented x 3, equal unlabored respirations, skin warm/dry/pink. 12:24 Reassessment: Patient appears in no apparent distress at this time. Patient and/or jd3 family updated on plan of care and expected duration. Pain level reassessed. Patient is alert, oriented x 3, equal unlabored respirations, skin warm/dry/pink. Vital Signs: 09:11 BP 186 / 99; Pulse 105; Resp 16; Temp 98.9; Pulse Ox 99% on R/A; iw 10:58 BP 176 / 96; Pulse 71; Resp 16; Pulse Ox 99% ; jd3 ED Course: 09:00 Patient arrived in ED. am2 09:12 Triage completed. iw 09:13 Arm band placed on. iw 09:17 Charly Plummer MD is Attending Physician. kdr 09:19 Conrado Lowery RN is Primary Nurse. jl7 11:12 US Extremity Venous Unilateral Ltd In Process Unspecified. EDMS 12:24 No provider procedures requiring assistance completed. IV discontinued, intact, jd3 bleeding controlled, No redness/swelling at site. Pressure dressing applied. 12:25 Patient has correct armband on for positive identification. Placed in gown. Bed in low jd3 position. Call light in reach. Side rails up X 1. Adult w/ patient. playground monitor on. Pulse ox on. NIBP on. Administered Medications: 10:00 Drug: SOLU-Medrol (methylPrednisoLONE) 60 mg Route: IVP; Site: left forearm; jl7 11:00 Follow up: Response: No adverse reaction jd3 10:02 Drug: Ancef (cefazolin) 1 grams Route: IVPB; Site: left forearm; 7 11:00 Follow up: Response: No adverse reaction; IV Status: Completed infusion jd3 Medication: 12:24 VIS not applicable for this client. jd3 Outcome: 11:57 Discharge ordered by . kdr 12:24 Discharged to home ambulatory, with family. jd3 12:24 Condition: stable 12:24 Discharge instructions given to patient, family, Instructed on discharge instructions, follow up and referral plans. medication usage, Demonstrated understanding of instructions, follow-up care, medications, Prescriptions given X 2. 12:25 Patient left the ED. jd3 Signatures: Dispatcher [employer] EDMS Charly Plummer MD MD kdr Williams, Irene RN XENIA iw Conrado Lowery RN RN jl7 Rebecca Mckeon Jonathon, RN RN jd3
[2022-04-28 12:37] VITALS: TEMP 98.9; O2SAT 99
[2022-04-28 12:39] VITALS: BP 176/96
== END 2022-04-28 12:25 | disposition home or self-care (01) ==
LOC: ER 08:57
DX: L03.113 Cellulitis of right upper limb (principal); R22.31 Localized swelling, mass and lump, right upper limb; Z88.2 Allergy status to sulfonamides; E78.00 Pure hypercholesterolemia, unspecified; I10 Essential (primary) hypertension; F03.90 Unspecified dementia, unspecified severity, without behavioral disturbance, psychotic disturbance, mood disturbance, and anxiety; I25.2 Old myocardial infarction
CPT/HCPCS: 96365; 85025; 80048; 36415; 93971; 96375; 99284; J2930; J0690

== ENCOUNTER 2023-05-13 14:51 | Emergency (ER) | payer OTHER ==
--- OUTSIDE RECORDS SUMMARY | 2023-05-13 14:56 | XMS REPORT | Continuity of Care Document ---
:1945 Author Organization [facility] Address [address] [place] [address] Care Team Providers Name Role Phone Kai Luz DO Brian Primary Care Physician [phone] Kai Luz Attending Clinician Unavailable LOREN WADDELL Attending Clinician Unavailable Candy Breen MD Attending Clinician 3, Ods Attending Clinician Unavailable Loren Waddell MD Attending Clinician Claire DALLAS, Cori Attending Clinician LOREN WADDELL Admitting Clinician Unavailable Payers Payer Name Policy Type Policy Number Effective Date Expiration Date S ource UNITED MEDICARE [id number] 2018 HMO 00:00:00 [place] [id number] 2018 Common HEALTHCARE 00:00:00 [facility] - [facility] MEDICARE [facility] Problems Condition Condition Condition Status Onset Resolution Last Treating Co mments Source Name Details Category Date Date Treatment Clinician Date Anorexia Anorexia Problem Active Commo n [facility] - [facility] [id number] White coat Problem Active Com mon syndrome Spirit with - [facility] diagnosis [facility] 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 Essential Benign Problem Active Common hypertensi essential Spi rit on HTN 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 [facility] No known No known Disease [facility] r active active College problems problems of Medicin e Allergies, Adverse Reactions, Alerts Allergy Allergy Status Severity Reaction(s) Onset Inactive Treating Comm ents Source Name Type Date Date Clinician SULFA Allergy Active [facility] St (SULFONA 5-20 [facility] MIDE 00:00: Medical ANTIBIOT 00 Center ICS) Sulfa Propensi Active [facility] St (Sulfona ty to 5-20 [facility] mide adverse 00:00: Medical Antibiot reaction 00 Center ics) s Sulfa Propensi Active [facility] Antibiot ty to 5-16 [place] ics adverse 00:00: of reaction 00 Medicin s to e drug Social History Social Habit Start Date Stop Date Quantity Comments Source History of Tobacco Never Smoker Comm on Spirit - Use [facility] B[facility] Medical [facility] History [facility] Alcohol Std Drinks Medica l [place] Gender identity [facility] Sexual orientation [facility] Alcohol intake 2020-04-18 2020-04-18 Current [facility] St Rony es 00:00:00 00:00:00 non-drinker of Medical Ce nter alcohol (finding) Tobacco use and 2020-01-18 2020-01-18 Former user [facility] C ollege exposure 00:00:00 00:00:00 of Medicine History SDOH 2019-04-19 2019-04-[address] [facility] Alcohol Frequency 00:00:00 00:00:00 [facility] Tobacco Comment 2019-04-15 2019-04-15 stopped 10 yrs [facility] 00:00:00 00:00:00 ago of Medicine Sex Ass[birth year] At [birth year] [facility] Smoking Status Start Date Stop Date Source Tobacco smoking [facility] consumption unknown Never Smoker [facility] nter Former smoker 2020-01-18 00:00:00 2020-01-18 [facility] ge of 00:00:00 Medicine Medications Ordered Filled Start Stop Current Ordering Indication Dosage Frequency Signature Comments Components Source Medication Medication Date Date Medication? Clinician (SIG) Name Name Teriparatid 2020-0 Yes .08mL 0.08 mL. [facility] e, 07-04 College Recombinant 19:23: of , (FORTEO) 34 Medicin 600 e MCG/2.4ML SOLN NIACIN-50 2020-0 Yes Take by [facility] r OR - mouth. College 19:22: of 20 Medicin e aspirin 81 2020-0 Yes 81mg Take 81 mg [facility] MG tablet 07-04 by mouth Anna e 19:22: daily. of 20 Medicin e Calcium 2020-0 Yes Take by [facility] Carb-Cholec - mouth. [facility] e alciferol 19:22: of (CALCIUM 20 Medicin 600 + D OR) e POTASSIUM 2020-0 Yes Take by [facility] GLUCONATE 07-04 mouth. [place] OR 19:22: of 20 Medicin e Cholecalcif 2020-0 Yes Take by [facility] alice 07-04 mouth. [place] (VITAMIN 19:22: of D3) 1000 20 Medicin units CAPS e Cyanocobala 2020-0 Yes Take by [facility] min (B-12) 8- mouth. College 100 MCG 19:22: of TABS 20 Medicin e carvedilol 2020-0 2020- No 6.25mg Take 6.25 [facility] (COREG) 8- 08-04 mg by [place] 6.25 MG 19:21: 00:00 mouth 2 of tablet 39 :00 times Medicin daily e (with meals). galantamine 2020-0 Yes Take by [facility] 12 MG TABS - mouth. College 19:21: of 19 Medicin e carvedilol 2020-0 Yes TK 1 T PO Ba [facility] (COREG) 7-12 BID College 12.5 MG 00:00: of tablet 00 Medicin e furosemide 2020-0 Yes 20mg Q.5D Take [address] (LASIX) 20 3-26 by mouth 2 Rony es MG tablet 14:49: (two) Medical 30 times Center daily. ofloxacin 2020-0 Yes 1[drp] Q.25D [address] (OCUFLOX) 3-26 (four) [facility] 0.3 % 14:49: times Medical ophthalmic 30 daily. Center solution calcium 2020-0 Yes 1{tbl} Take [address] carbonate-v 3-26 tablet by Rony es itamin D3 14:49: mouth 2 Medic al (CALCIUM- 30 (two) Center TAMIN D) times 500 daily with mg(1,250mg) breakfast -200 unit and per tablet dinner. potassium 2020-0 Yes Take by CHI S t gluconate 3-26 mouth. [facility]ukes 550 mg (90 14:49: Medical mg) Tab 30 Center carvedilol 2020-0 Yes 6.25mg Take 6.[address] (COREG) 3-26 mg by [facility]ukes 6.25 MG 14:49: mouth 2 Medical tablet 30 (two) Center times daily with breakfast and dinner. furosemide 2020-0 Yes 20mg Q.5D Take [address] (LASIX) 20 3-26 by mouth 2 Rony es MG tablet 14:49: (two) Medical 30 times Center daily. ofloxacin 2020-0 Yes 1[drp] Q.25D [address] drop [address] (OCUFLOX) 3-26 (four) [facility] 0.3 % 14:49: times Medical ophthalmic 30 daily. Center solution calcium 2020-0 Yes 1{tbl} Take [address] carbonate-v 3-26 tablet by Rony es itamin D3 14:49: mouth 2 Medic al (CALCIUM- 30 (two) Center TAMIN D) times 500 daily with mg(1,250mg) breakfast -200 unit and per tablet dinner. potassium 2020-0 Yes Take by CHI S t gluconate 3-26 mouth. [facility] 550 mg (90 14:49: Medical mg) Tab 30 Center carvedilol 2020-0 Yes 6.25mg Take 6.[address] (COREG) 3-26 mg by [facility]ukes 6.25 MG 14:49: mouth 2 Medical tablet 30 (two) Center times daily with breakfast and dinner. erythromyci 2020-[address] [facility] n opth 12-30 [facility] (ROMYCIN) 00:00: strip in of ophthalmic 00 the left Medic in ointment eye at e bedtime erythromyci Yes Place a [facility] n opth 12-30 [facility] (ROMYCIN) 00:00: strip in of ophthalmic 00 the left Medic in ointment eye at e bedtime erythromyci Yes Place a [facility] n opth 12-30 [facility] (ROMYCIN) 00:00: strip in of ophthalmic 00 the left Medic in ointment eye at e bedtime furosemide Yes 20mg Take 20 mg [facility] (LASIX) 20 9-17 by mouth Colle ge MG tablet 14:17: daily. of 40 Medicin e furosemide Yes 20mg Take 20 mg [facility] (LASIX) 20 -17 by mouth Colle ge MG tablet 14:17: daily. of 40 Medicin e carvedilol Yes 6.25mg Take 6.25 [facility] (COREG) 9-17 mg by [place] 6.25 MG 14:17: mouth 2 of tablet 40 times Medicin daily e (with meals). galantamine Yes Take by [facility] 12 MG TABS 08-17 mouth. [place] 14:17: of 40 Medicin e aspirin 81 Yes 81mg Take 81 mg [facility] MG tablet 17 by mouth Colleg e 14:17: daily. of 40 Medicin e Calcium Yes Take by [facility] Carb-Cholec - mouth. Colleg e alciferol 14:17: of (CALCIUM 40 Medicin 600 + D OR) e POTASSIUM Yes Take by [facility] GLUCONATE 08-17 mouth. [place] OR 14:17: of 40 Medicin e Cholecalcif Yes Take by [facility] alice 08-17 mouth. [place] (VITAMIN 14:17: of D3) 1000 40 Medicin units CAPS e Cyanocobala Yes Take by [facility] min (B-12) - mouth. College 100 MCG 14:17: of TABS 40 Medicin e NIACIN-50 2018-0 Yes Take by [facility] OR 9-17 mouth. College 14:17: of 40 Medicin e carvedilol 2019-0 Yes 6.25mg Take 6.25 [facility] (COREG) 9-17 mg by College 6.25 MG 14:17: mouth 2 of tablet 40 times Medicin daily e (with meals). galantamine 2019-0 Yes Take by [facility] 12 MG TABS 9-17 mouth. College 14:17: of 40 Medicin e aspirin 81 2018-0 Yes 81mg Take 81 mg [facility] MG tablet 17 by mouth Colleg e 14:17: daily. of 40 Medicin e furosemide 2018-0 Yes 20mg Take 20 mg [facility] (LASIX) 20 9-17 by mouth Colle ge MG tablet 14:17: daily. of 40 Medicin e Calcium 2018-0 Yes Take by [facility] Carb-Cholec -17 mouth. Colleg e alciferol 14:17: of (CALCIUM 40 Medicin 600 + D OR) e POTASSIUM Yes Take by [facility] GLUCONATE -17 mouth. [place] OR 14:17: of 40 Medicin e Cholecalcif 2019-0 Yes Take by [facility] alice 9-17 mouth. College (VITAMIN 14:17: of D3) 1000 40 Medicin units CAPS e Cyanocobala 2018-0 Yes Take by [facility] min (B-12) 9-17 mouth. College 100 MCG 14:17: of TABS 40 Medicin e NIACIN-50 2018-0 Yes Take by [facility] OR 9-17 mouth. College 14:17: of 40 Medicin e furosemide 2018-0 Yes 20mg Take 20 mg [facility] (LASIX) 20 -17 by mouth Colle ge MG tablet 14:17: daily. of 40 Medicin e carvedilol 2019-0 Yes 6.25mg Take 6.25 [facility] (COREG) 9-17 mg by College 6.25 MG 14:17: mouth 2 of tablet 40 times Medicin daily e (with meals). galantamine 2019-0 Yes Take by [facility] 12 MG TABS 9-17 mouth. College 14:17: of 40 Medicin e aspirin 81 2018-0 Yes 81mg Take 81 mg [facility] MG tablet 17 by mouth Colleg e 14:17: daily. of 40 Medicin e Calcium 2019-0 Yes Take by [facility] Carb-Cholec -17 mouth. Colleg e alciferol 14:17: of (CALCIUM 40 Medicin 600 + D OR) e POTASSIUM 2018-0 Yes Take by [facility] GLUCONATE -17 mouth. College OR 14:17: of 40 Medicin e Cholecalcif 2019-0 Yes Take by [facility] alice 9-17 mouth. [place] (VITAMIN 14:17: of D3) 1000 40 Medicin units CAPS e Cyanocobala 2019-0 Yes Take by [facility] min (B-12) 9-17 mouth. [place] 100 MCG 14:17: of TABS 40 Medicin e NIACIN-50 2018-0 Yes Take by [facility] OR -17 mouth. College 14:17: of 40 Medicin e furosemide 0 Yes 20mg Take 20 mg [facility] (LASIX) 20 17 by mouth Colle ge MG tablet 14:17: daily. of 40 Medicin e carvedilol Yes 6.25mg Take 6.25 [facility] (COREG) 9-17 mg by College 6.25 MG 14:17: mouth 2 of tablet 40 times Medicin daily e (with meals). galantamine 20190 Yes Take by [facility] 12 MG TABS -17 mouth. College 14:17: of 40 Medicin e aspirin 81 2018-0 Yes 81mg Take 81 mg [facility] MG tablet -17 by mouth Colleg e 14:17: daily. of 40 Medicin e Calcium 2018-0 Yes Take by [facility] Carb-Cholec -17 mouth. Colleg e alciferol 14:17: of (CALCIUM 40 Medicin 600 + D OR) e POTASSIUM 2019-0 Yes Take by [facility] GLUCONATE -17 mouth. College OR 14:17: of 40 Medicin e Cholecalcif 2019-0 Yes Take by [facility] alice 9-17 mouth. [place] (VITAMIN 14:17: of D3) 1000 40 Medicin units CAPS e Cyanocobala 2019-0 Yes Take by [facility] min (B-12) 9-17 mouth. [place] 100 MCG 14:17: of TABS 40 Medicin e NIACIN-50 2019-0 Yes Take by [facility] OR 9-17 mouth. College 14:17: of 40 Medicin e memantine 2019-0 Yes [facility] (NAMENDA) 5 8-16 College MG tablet 00:00: of 00 Medicin e memantine 2019-0 Yes [facility] (NAMENDA) 5 8-16 College MG tablet 00:00: of 00 Medicin e memantine 2019-0 Yes [facility] (NAMENDA) 5 8-16 College MG tablet 00:00: of 00 Medicin e memantine 2019-0 Yes [facility] (NAMENDA) 5 8-16 College MG tablet 00:00: of 00 Medicin e memantine 2019-0 Yes [facility] (NAMENDA) 5 8-16 College MG tablet [...] daily. Shake well before each use prednisoLON 2018-0 Yes 1[drp] Place 1 [facility] E acetate 6-06 Drop into Colle ge (PRED 00:00: the left of FORTE) 1 % 00 eye four Medic in ophthalmic times e suspension daily. Shake well before each use prednisoLON 2019-0 2020- No 1[drp] Place 1 [facility] E acetate 6-06 02-18 Drop into Radhika ege (PRED 00:00: 00:00 the left of FORTE) 1 % 00 :00 eye four Medic in ophthalmic times e suspension daily. Shake well before each use cephALEXin 2019-0 Yes 500mg Take 1 Cap [facility] (KEFLEX) 5-21 by mouth College 500 MG 00:00: two times of capsule 00 daily. Medicin e cephALEXin 2019-0 Yes 500mg Take 1 Cap [facility] (KEFLEX) 5-21 by mouth College 500 [...] cephALEXin Yes 500mg Take 1 Cap [facility] (KEFLEX) 5-21 by mouth College 500 [...] Medic in solution times e daily. prednisoLON 0 2020- No 1[drp] Place 1 [facility] E acetate 5-21 02-18 Drop into Radhiak ege (PRED 00:00: 00:00 the left of FORTE) 1 % 00 :00 eye four Medic in ophthalmic times e suspension daily. Shake well before instillati on tobramycin 0 2020- No 1[drp] Place 1 [facility] (TOBREX) 5-21 02-18 Drop into Colle ge 0.3 % 00:00: 00:00 the left of ophthalmic 00 :00 eye four Medic in solution times e daily. galantamine Yes 12mg Q.5D Take [address] (RAZADYNE) 5-20 by mouth 2 Rony es 12 MG 15:57: (two) Medical tablet 37 times Center daily. aspirin 81 Yes 81mg QD Take [address] MG chewable 5-20 by mouth Luke s tablet 15:57: daily. [address] cyanocobala Yes 1000ug QD Take 1,[address] min 5-20 mcg by [facility]ukes (VITAMIN 15:57: mouth Medical B-12) 1000 37 daily. Center MCG tablet galantamine Yes 12mg Q.5D Take [address] (RAZADYNE) 5-20 by mouth 2 Rony es 12 MG 15:57: (two) Medical tablet 37 times Center daily. aspirin 81 Yes 81mg QD Take [address] MG chewable 5-20 by mouth Luke s tablet 15:57: daily. [address] cyanocobala Yes 1000ug QD Take 1,[address] min 5-20 mcg by [facility]ukes (VITAMIN 15:57: mouth Medical B-12) 1000 37 daily. Center MCG tablet Aspir-81 Aspir-81 Yes Kai 1 tablet C ommon [facility] Furosemide Furosemide Yes Kai 1 tablet Common [facility] Calcium Calcium Yes Kai 1 tablet Com mon Luz with meals [facility] Niacin Niacin Yes Kai 1 tablet Commo n Luz with food [facility] Klor-Con Klor-Con Yes Kai 1 tablet C ommon M20 M20 Luz with food [facility] Galantamine Galantamine Yes Kai 1 tablet Common Hydrobromid Hydrobromid Luz with meals [facility] e e [facility] Coreg Coreg Yes Kai 1 tab Common [facility] Namenda Namenda Yes Kai 1 tablet Com mon Luz [facility] Vitamin B12 Vitamin B12 Yes Kai 1 tablet Common [facility] Vitamin B12 Vitamin B12 No 1{table QD Vitamin 1000 MCG 1000 MCG t} B12 1000 MCG Aspir-81 81 Aspir-81 81 No 1{table QD Aspir-81 MG MG t} 81 MG Klor-Con Klor-Con No 1{table BID Klor-Con M20 20 MEQ M20 20 MEQ t_with_ M20 20 MEQ food} Galantamine Galantamine No 1{table BID Galantamin Hydrobromid Hydrobromid t_with_ e e 12 MG e 12 MG meals} Hydrobromi de 12 MG Prolia 60 Prolia 60 No Prolia 60 MG/ML MG/ML MG/ML Coreg 12.5 Coreg 12.5 No BID Coreg 12.5 MG MG MG Niacin 500 Niacin 500 No 1{table QD Niacin 500 MG MG t_with_ MG food} Namenda 5 Namenda 5 No 1{table BID Namenda 5 MG MG t} MG Calcium 600 Calcium 600 No 1{table BID Calcium MG MG t_with_ 600 MG meals} Klor-Con Klor-Con No 1{table BID Klor-Con M20 20 MEQ M20 20 MEQ t_with_ M20 20 MEQ food} - 81 Aspir- 81 No 1{table QD Aspir-81 MG MG t} 81 MG Prolia 60 Prolia 60 No Prolia 60 MG/ML MG/ML MG/ML Coreg 12.5 Coreg 12.5 No BID Coreg 12.5 MG MG MG Vitamin B12 Vitamin B12 No 1{table QD Vitamin 1000 MCG 1000 MCG t} B12 1000 MCG Namenda 5 Namenda 5 No 1{table BID Namenda 5 MG MG t} MG Calcium 600 Calcium 600 No 1{table BID Calcium MG MG t_with_ 600 MG meals} Galantamine Galantamine No 1{table BID Galantamin Hydrobromid Hydrobromid t_with_ e e 12 MG e 12 MG meals} Hydrobromi de 12 MG Niacin 500 Niacin 500 No 1{table QD Niacin 500 MG MG t_with_ MG food} Coreg 6.25 Coreg 6.25 No BID Coreg 6.25 MG MG MG Klor-Con Klor-Con No 1{table BID Klor-Con M20 20 MEQ M20 20 MEQ t_with_ M20 20 MEQ food} Aspir- 81 Aspir- 81 No 1{table QD Aspir-81 MG MG t} 81 MG Coreg 6.25 Coreg 6.25 No BID Coreg 6.25 MG MG MG Vitamin B12 Vitamin B12 No 1{table QD Vitamin 1000 MCG 1000 MCG t} B12 1000 MCG Galantamine Galantamine No 1{table BID Galantamin Hydrobromid Hydrobromid t_with_ e e 12 MG e 12 MG meals} Hydrobromi de 12 MG Prolia 60 Prolia 60 No Prolia 60 MG/ML MG/ML MG/ML Calcium 600 Calcium 600 No 1{table BID Calcium MG MG t_with_ 600 MG meals} Coreg 12.5 Coreg 12.5 No BID Coreg 12.5 MG MG MG Namenda 5 Namenda 5 No 1{table BID Namenda 5 MG MG t} MG Niacin 500 Niacin 500 No 1{table QD Niacin 500 MG MG t_with_ MG food} Prolia Prolia Kai as Common 06-10 Luz directed Spirit 00:00 - CHI :00 [facility] Immunizations Ordered Immunization Filled Immunization Date Status Commen ts Source Name Name Daniella Brewer 2020-09-21 Completed [facility] 10:51:00 - [facility] FluAD FluAD 2020-08-09 Completed [facility] 10:34:00 - [facility] Prolia Prolia 2020-02-23 Completed [facility] 14:26:00 - [facility] Prolia Prolia 2020-02-23 Completed [facility] 14:26:00 - [facility] Prolia Prolia 2020-02-23 Completed [facility] 14:26:00 - [facility] Prolia Prolia 2019-08-25 Completed [facility] 15:08:00 - [facility] Prolia Prolia 2019-08-25 Completed [facility] 15:08:00 - [facility] Prolia Prolia 2019-08-25 Completed [facility] 15:08:00 - [facility] Prolia Prolia 2019-01-28 Completed [facility] 10:55:00 - [facility] Prolia Prolia 2019-01-28 Completed [facility] 10:55:00 - [facility] Prolia Prolia 2019-01-28 Completed [facility] 10:55:00 [facility] Vital Signs Vital Name Observation Time Observation Value Comments Source weight 2020-09-21 10:40:00 83.1 [lb_av] Common [facility] temperature 2020-09-21 10:40:00 97.2 [degF] Common [facility] bmi 2020-09-21 10:40:00 13.83 kg/m2 [facility] oximetry 2020-09-21 10:40:00 94 % Common [facility] respiratory rate 2020-09-21 10:40:00 16 /min Comm on [facility] blood pressure 2020-09-21 10:40:00 142 mm[Hg] Common [facility] - systolic [facility] blood pressure 2020-09-21 10:40:00 80 mm[Hg] Common [facility] - diastolic [facility] height 2020-09-21 10:40:00 65 [in_i] Common [facility] height 2020-06-21 11:00:00 65 [in_i] [facility] weight 2020-06-21 11:00:00 86.5 [lb_av] Common [facility] temperature 2020-06-21 11:00:00 99.1 [degF] [facility] bmi 2020-06-21 11:00:00 14.39 kg/m2 [facility] oximetry 2020-06-21 11:00:00 97 % [facility] respiratory rate 2020-06-21 11:00:00 16 /min Comm on [facility] blood pressure 2020-06-21 11:00:00 149 mm[Hg] Common [facility] - systolic [facility] blood pressure 2020-06-21 11:00:00 87 mm[Hg] Common [facility] diastolic [facility] Procedures Procedure Date / Time Performed Performing Clinician [facility] e B-SCAN ULTRASOUND - OS 2020-07-04 19:10:06 Candy Breen [facility] EYE Medicine OCT, RETINA - OS - LEFT 2020-07-04 18:49:27 Candy Breen [facility] EYE [facility] OCT, RETINA - OS - LEFT 2019-08-17 14:36:28 Candy Breen or [place] of EYE Medicine Plan of Care Planned Activity Planned Date Details Comments Source Future Scheduled 2023-04-25 COVID-19 VACCINE (#1) [facility] Test 22:30:11 [code = COVID-19 VACCINE (#1)] Future Scheduled 2023-04-25 SHINGLES VACCINES (1 Met [facility] Test 22:30:11 of 2) [code = SHINGLES VACCINES (1 of 2)] Future Scheduled 2023-04-25 65+ [facility]OCOCCAL [facility] Test 22:30:11 VACCINE (1 - PCV) [code = 65+ PNEUMOCOCCAL VACCINE (1 - PCV)] Future Scheduled 2023-04-25 INFLUENZA VACCINE Method is Hospital Test 22:30:11 [code = INFLUENZA VACCINE] Future Scheduled COLON CANCER [facility] of Test SCREENING: COLONOSCOPY Medic ine [code = COLON CANCER SCREENING: COLONOSCOPY] Future Scheduled MAMMOGRAM ANNUAL [code B [facility] College of Test = MAMMOGRAM ANNUAL] Medicine Future Scheduled TETANUS SHOT (ADULT) [facility] of Test [code = TETANUS SHOT Medicin e (ADULT)] Future Scheduled HEPATITIS C SCREENING [facility] of Test [code = HEPATITIS C Medicine SCREENING] Future Scheduled FALL SCREEN [code = [facility] of Test FALL SCREEN] Medicine Future Scheduled OSTEOPOROSIS SCREENING B [facility] of Test [code = OSTEOPOROSIS Medicin e SCREENING] Future Scheduled PNEUMOVAX >=65 [facility] llege of Test (PPSV23) [code = Medicine PNEUMOVAX >=65 (PPSV23)] Future Scheduled PREVNAR >= 65 (PCV13) Ba [facility] of Test [code = PREVNAR >= 65 Medici ne (PCV13)] Future Scheduled MEDICARE AWV (Initial) B [facility] of Test [code = MEDICARE AWV Medicin e (Initial)] Future Scheduled FLU VACCINE > 6 MONTHS B [facility] of Test [code = FLU VACCINE > Medici ne 6 MONTHS] Future Scheduled COLON CANCER [facility] of Test SCREENING: COLONOSCOPY Medic ine [code = COLON CANCER SCREENING: COLONOSCOPY] Future Scheduled MAMMOGRAM ANNUAL [facility] Test = MAMMO[facility] ANNUAL] Medicine Future Scheduled TETANUS SHOT (ADULT) [facility] of Test [code = TETANUS SHOT Medicin e (ADULT)] Future Scheduled HEPATITIS C SCREENING [facility] of Test [code = HEPATITIS C Medicine SCREENING] Future Scheduled FALL SCREEN [code = [facility] [employer] of Test FALL SCREEN] Medicine Future Scheduled OSTEOPOROSIS SCREENING B [facility] of Test [code = OSTEOPOROSIS Medicin e SCREENING] Future Scheduled PNEUMOVAX >=65 [facility] llege of Test (PPSV23) [code = Medicine PNEUMOVAX >=65 (PPSV23)] Future Scheduled MEDICARE AWV (Initial) B [facility] of Test [code = MEDICARE AWV Medicin e (Initial)] Future Scheduled FLU VACCINE > 6 MONTHS B [facility] of Test [code = FLU VACCINE > Medici ne 6 MONTHS] Future Scheduled COLON CANCER [facility] of Test SCREENING: COLONOSCOPY Medic ine [code = COLON CANCER SCREENING: COLONOSCOPY] Future Scheduled MAMMOGRAM ANNUAL [code B [facility] College of Test = MAMMOGRAM ANNUAL] Medicine Future Scheduled MEDICARE AWV [code = [facility] [employer] of Test MEDICARE AWV] Medicine Future Scheduled TETANUS SHOT (ADULT) [facility] College of Test [code = TETANUS SHOT Medicin e (ADULT)] Future Scheduled HEPATITIS C SCREENING [facility] of Test [code = HEPATITIS C Medicine SCREENING] Future Scheduled FALL SCREEN [code = [employer] of Test FALL SCREEN] Medicine Future Scheduled OSTEOPOROSIS SCREENING B [facility] of Test [code = OSTEOPOROSIS Medicin e SCREENING] Future Scheduled PNEUMOVAX >=65 [facility] [employer] (PPSV23) [code = Medicine PNEUMOVAX >=65 (PPSV23)] Future Scheduled PREVNAR >= 65 (PCV13) [facility] of Test [code = PREVNAR >= 65 Medici ne (PCV13)] Future Scheduled FLU VACCINE > 6 MONTHS B [facility] of Test [code = FLU VACCINE > Medici ne 6 MONTHS] Future Scheduled COLON CANCER [facility] [employer] of Test SCREENING: COLONOSCOPY Medic ine [code = COLON CANCER SCREENING: COLONOSCOPY] Future Scheduled MAMMOGRAM ANNUAL [[facility] Test = MAMMOGRAM ANNUAL] Medicine Future Scheduled MEDICARE AWV [code = [employer] MEDICARE AWV] Medicine Future Scheduled TETANUS SHOT (ADULT) [employer] [code = TETANUS SHOT Medicin e (ADULT)] Future Scheduled HEPATITIS C SCREENING [facility] of Test [code = HEPATITIS C Medicine SCREENING] Future Scheduled FALL SCREEN [code = [employer] FALL SCREEN] Medicine Future Scheduled OSTEOPOROSIS SCREENING [facility] of Test [code = OSTEOPOROSIS Medicin e SCREENING] Future Scheduled PNEUMOVAX >=65 [facility] [employer] (PPSV23) [code = Medicine PNEUMOVAX >=65 (PPSV23)] Future Scheduled PREVNAR >= 65 (PCV13) [facility] of Test [code = PREVNAR >= 65 Medici ne (PCV13)] Future Scheduled FLU VACCINE > 6 MONTHS B [facility] of Test [code = FLU VACCINE > Medici ne 6 MONTHS] Future Scheduled COLON CANCER [facility] Test SCREENING: COLONOSCOPY Medic ine [code = COLON CANCER SCREENING: COLONOSCOPY] Future Scheduled MAMMOGRAM ANNUAL [code [facility] of Test = MAMMOGRAM ANNUAL] Medicine Future Scheduled TETANUS SHOT (ADULT) [facility] of Test [code = TETANUS SHOT Medicin e (ADULT)] Future Scheduled HEPATITIS C SCREENING [facility] Test [code = HEPATITIS C Medicine SCREENING] Future Scheduled FALL SCREEN [code = [facility] [employer] FALL SCREEN] Medicine Future Scheduled OSTEOPOROSIS SCREENING [facility] of Test [code = OSTEOPOROSIS Medicin e SCREENING] Future Scheduled PNEUMOVAX >=65 [facility] [employer] of Test (PPSV23) [code = Medicine PNEUMOVAX >=65 (PPSV23)] Future Scheduled PREVNAR >= 65 (PCV13) [facility] Test [code = PREVNAR >= 65 Medici ne (PCV13)] Future Scheduled MEDICARE AWV (Initial) [facility] of Test [code = MEDICARE AWV Medicin e (Initial)] Future Scheduled FLU VACCINE > 6 MONTHS [facility] of Test [code = FLU VACCINE > Medici ne 6 MONTHS] Encounters Start End Encounter Admission Attending Care Care Encounter Source Date/Time Date/Time Type Type Clinicians Facility Department ID 2021-12-26 Outpatient Luz, [facility] Common 11:58:00 Kai [id number] [facility] 2021-12-26 Outpatient Luz, [facility] Common 11:57:34 Kai [id number] [facility] 2021-12-26 Outpatient Luz, [facility] [id number] Common 11:15:19 Kai [id number] [facility] 2021-12-26 Outpatient Luz, [facility] [id number] Common 11:14:17 Kai [id number] [facility] 2021-09-04 Outpatient LAZARUS WADDELL Surgery [id number] [facility] 13:55:38 LOREN 2020-09-21 2020-09-21 [facility]ICE [facility] [id number] Co mmon 00:00:00 00:00:00 VISIT Spirit ESTAB PT - CHI LEVEL 4 [facility] 2020-08-31 2020-08-31 [facility]EL[id number] Co mmon 00:00:00 00:00:00 [facility] 2020-07-04 2020-07-04 Office Candy Breen [id number] [facility] 13:39:07 14:04:07 Visit 3, Ods AMBULATOR [id number] College Y 0.2.7.2.686 of [id number] Medi nikole 300 e 2020-06-21 2020-06-21 OFFICE [facility] [id number] Co mmon 00:00:00 00:00:00 VISIT Spirit ESTAB PT - CHI LEVEL 4 [facility] 2020-02-24 2020-02-24 Outpatient SLE [facility] [id number] [id number] [facility] 00:00:00 00:00:00 [id number] 2020-02-23 2020-02-23 [facility] [id number] Common 14:00:00 14:00:00 [facility] [address] [facility] 2020-01-18 2020-01-18 Office ANIYA Waddell [id number] [facility] 10:01:30 10:06:30 Visit Loren Vaughan AMBULATOR [id number] College Y 0.2.7.2.686 of [id number] Medi nikole 300 e 2019-12-30 2019-12-30 Office ANIYA Rangel [id number] [facility] 14:51:50 16:52:17 Visit Cori AMBULATOR [id number] College Y [id number] of [id number] Medi nikole 300 e 2019-11-11 2019-11-11 [facility] [id number] Common 10:30:00 10:30:[address] [facility] 2019-11-03 2019-11-03 [facility] [id number] Common 17:07:00 17:07:[address] [facility] 2019-09-13 2019-09-13 [facility] [id number] Common 11:45:00 11:45:[address] [facility] 2019-08-25 2019-08-25 [facility] [id number] Common 15:00:00 15:00:[address] [facility] 2019-08-24 2019-08-24 [facility] [id number] Common 15:47:00 15:47:[address] [facility] 2019-08-17 2019-08-17 Office Jose AntonioSANDIE rico [id number] [facility] 10:31:21 10:46:21 Visit Loren Alexus AMBULATOR [id number] College Y 0.2.7.2.[id number] [facility] nikole 300 e 2019-08-17 2019-08-17 Office NuhaANIYA [id number] [facility] 08:50:24 09:05:24 Visit Candy AMBULATOR [id number] College Y [id number] of [id number] Medi nikole 300 e 2019-05-24 2019-05-24 [facility] [id number] Common 16:30:00 16:30:[address] [facility] 2019-01-28 2019-01-28 [facility] [id number] Common 13:57:00 13:57:[address] [facility] 2019-01-28 2019-01-28 [facility] [id number] Common 10:15:00 10:15:[address] [facility] 2019-01-07 2019-01-07 [facility] [id number] Common 16:48:00 16:48:[address] [facility] 2019-01-07 2019-01-07 [facility] [id number] Common 13:26:00 13:26:[address] [facility] 2018-12-31 2018-12-31 [facility] [id number] Common 11:30:00 11:30:[address] [facility] 2018-11-18 2018-11-18 [facility] [id number] Common 15:43:00 15:43:[address] [facility] 2018-06-22 2018-06-22 [facility] [id number] Common 13:45:00 13:45:[address] [facility] 2018-06-15 2018-06-15 [facility] [id number] Common 09:15:00 09:15:[address] [facility] 2018-03-10 2018-03-10 [facility] [id number] Common 08:30:00 08:30:[address] [facility] Results Test Description Test Time Test Comments Results Result [facility] e Comments B-SCAN ULTRASOUND 2020-07-04 B-scan [facility] - OS - LEFT EYE 20:39:49 ultrasound: of Medic ine attached and clear cavity OCT, RETINA - OS 2020-07-04 [facility] latrice - LEFT EYE 20:39:06 OCTOD: 290, of Medicine drusen, no fluidOS: no view OCT, RETINA - OS 2019-08-17 [place] [facility] latrice - LEFT EYE 15:17:05 OCTOD: 268, of Medicine wnlOS: no view Comp. Metabolic Panel (14) (CMP) Test Item Value Reference Range Interpretation Comme nts Glucose (test code = 2345-7) 86 BUN (test code = 3094-0) 9 Creatinine (test code = 2160-0) 0.80 eGFR If NonAfricn Am (test code = 06728-1) 73 eGFR If Africn Am (test code = 85601-2) 84 BUN/Creatinine Ratio (test code = 3097-3) 11 Sodium (test code = 2951-2) 137 Potassium (test code = 2823-3) 4.1 Chloride (test code = 2075-0) 94 Carbon Dioxide, Total (test code = 8-9) 27 Calcium (test code = 08735-5) 9.5 Protein, Total (test code = 2885-2) 6.3 Albumin (test code = 1751-7) 3.2 Globulin, Total (test code = 93040-4) 3.1 A/G Ratio (test code = 1759-0) 1.0 Bilirubin, Total (test code = 1975-2) 0.6 Alkaline Phosphatase (test code = 6768-6) 125 AST (SGOT) (test code = 1920-8) 13 ALT (SGPT) (test code = 1742-6) 7 CBC With Differential/Platelet Test Item Value Reference Range Interpretation Comments WBC (test code = 6690-2) 10.3 RBC (test code = 789-8) 5.15 Hemoglobin (test code = 718-7) 14.6 Hematocrit (test code = 4544-3) 43.8 MCV (test code = 787-2) 85 MCH (test code = 785-6) 28.3 MCHC (test code = 786-4) 33.3 RDW (test code = 788-0) 12.5 Platelets (test code = 777-3) 423 Neutrophils (test code = 770-8) 71 Lymphs (test code = 736-9) 14 Monocytes (test code = 5905-5) 14 Eos (test code = 713-8) 0 Basos (test code = 706-2) 1 Immature Cells (test code = UNLOINC) Neutrophils (Absolute) (test code = 7.3 751-8) Lymphs (Absolute) (test code = 731-0) 1.5 Monocytes(Absolute) (test code = 742-7) 1.4 Eos (Absolute) (test code = 711-2) 0.0 Baso (Absolute) (test code = 704-7) 0.1 Immature Granulocytes (test code = 0 97339-0) Immature Grans (Abs) (test code = 0.0 85047-6) NRBC (test code = 92229-3) Hematology Comments: (test code = 18942-2)
[2023-05-13] MEDS ORDERED: NA CHLORIDE 0.9% 500 ML ONE (15:15)
[2023-05-13 15:44] LABS: Absolute Lymphocytes (CBC) 1.4 K/uL (0.7-4.9); Hematocrit 42.3 % (36.0-45.0); Lymphocytes % 11.8 % (15.3-44.8); MCV 86.3 fL (80-100); MPV 7.8 fL (7.6-11.3); RBC Red Blood Cell Count 4.91 M/uL (3.86-4.86)
[2023-05-13 15:48] LABS: Protime INR 0.97
[2023-05-13 16:04] LABS: Specific Gravity 1.024 (1.005-1.030)
[2023-05-13 16:05] LABS: Potassium 3.1 mEq/L (3.5-5.1)
[2023-05-13 16:09] LABS: Specific Gravity 1.024 (1.005-1.030); Urine Bacteria 20-50 /HPF (<20); Urine Bilirubin NEGATIVE (Negative); Urine Blood 2+ (Negative); Urine Clarity Turbid (Clear); Urine Color Yellow (Yellow); Urine Glucose NEGATIVE (Negative); Urine Protein TRACE (Negative); Urine RBC 21-50 /HPF (None Seen); Urine Urobilinogen Normal (Normal); Urine WBC Clump Rare /HPF (None Seen)
--- NOTE | 2023-05-13 16:32 | RAD REPORT ---
EXAM DESCRIPTION: CT - Head C Spine Cap Wo Con - 05/13/2023 3:20 pm CLINICAL HISTORY: fall from bed COMPARISON: Head Brain Wo Cont dated 12/22/2018; Chest Single View dated 11/23/2019 TECHNIQUE: Head and cervical spine CT images were obtained without IV contrast. Chest, abdomen, and pelvis CT images were obtained also without IV contrast. Multiplanar reformats were generated and rev iewed. All CT scans are performed using dose optimization technique as appropriate and may include automated exposure control or mA/KV adjustment according to patient size. FINDINGS: CT HEAD: No intracranial hemorrhage, mass effect, or edema. No evidence of acute territorial infarct. Stable l eft parietal region of encephalomalacia, suggestive of sequelae of remote trauma or infarct. No midli ne shift or abnormal fluid collection. The ventricles are stable in caliber and configuration, with m ild diffuse parenchymal volume loss. Basal cisterns are patent. Mastoid aircells and paranasal sinuse s are clear. No acute skull fracture. CT CERVICAL SPINE: No acute cervical spine fracture or subluxation. Vertebral body heights are well maintained. Facet dangelo ints are normal in alignment. No hyperattenuating canal hematoma. Multilevel endplate and facet roberts es, contributing to moderate neural foraminal narrowing on the right at C4-5, and bilaterally at C5-6 . Prevertebral and paraspinous soft tissues are unremarkable. CT CHEST: No pneumothorax, pulmonary contusion or pleural fluid collection. Hyperinflation and advanced centril obular emphysematous changes. Linear nodular soft tissue thickening extending to the right apex, favo red to represent scarring. Right middle lobe triangular subpleural soft tissue nodule measuring 9 mil limeter, and a left lower lobe subpleural 1.2 centimeter soft tissue nodule are incidentally noted No mediastinal hematoma and the aorta and pulmonary arteries are unremarkable. No chest will mass or ab normal axillary finding. No displaced rib fracture or other significant bony finding. CT ABDOMEN/ PELVIS: No evidence of traumatic injury to solid abdominal viscera. Gallbladder and biliary tree are unremark able. No bowel injury or significant finding. Colonic diverticulosis. Status post cholecystectomy. Pr obable left nephrectomy as well. No free air, free fluid or abnormal fat stranding. No urinary bladde r abnormality. Superior endplate mild compression deformity at T4. Inferior endplate mild compression deformity at T 6 and mild central wedge compression deformity at T7. Xfde-ta-jzvmwujj superior endplate compression deformities T8, T9,, T10, and T12. Mild inferior endplate compression deformity at L1, and mild super ior endplate compression deformities at L3 and L4. Mild paraspinous edema at T7 could relate to an ac [place] component. IMPRESSION: No acute abnormalities of the head, cervical spine, or chest. Multilevel thoracic and lumbar spine compression deformities, of indeterminate age. Mild paraspinous edema at T7 level suggests an acute fracture component. Incidental findings including right apical soft tissue thickening favored to represent scarring, as w ell as nonspecific right middle lobe and left lower lobe pulmonary nodules. A follow-up CT in 6- 12 m [facility] is recommended to ensure stability. If the patient said spinous criteria for lung screening inv olvement, these could be followed on annual lung screening CT.
--- NOTE | 2023-05-13 16:41 | ER ---
Nurse's Notes [facility] Name: Anh Saavedra Age: 78 yrs Sex: Female : 1945 Arrival Date: 05/13/2023 Time: 14:51 Bed 14 Private MD: Diagnosis: Fall on same level, unspecified;UTI/ Urinary tract infection, site not specified;Dehydration;Wedge compression fracture of unspecified thoracic vertebra Presentation: 05/13 14:59 Chief complaint: EMS states: pt fell at home at approximately 8am this morning. kc6 denies LOC, no blood thinners. decided it was best to call EMS for left sided body pain. Coronavirus screen: Vaccine status: Patient reports receiving the 2nd dose of the covid vaccine. At this time, the client does not indicate any symptoms associated with coronavirus-19. Ebola Screen: No symptoms or risks identified at this time. Initial Sepsis Screen: Does the patient meet any 2 criteria? No. Patient's initial sepsis screen is negative. Does the patient have a suspected source of infection? No. Patient's initial sepsis screen is negative. Risk Assessment: Do you want to hurt yourself or someone else? Patient reports no desire to harm self or others. Onset of symptoms was May 13, 2023. 14:59 Method Of Arrival: EMS: [facility] kc6 14:59 Acuity: RAYA 3 kc6 Triage Assessment: 15:00 General: Appears in no apparent distress. comfortable, Behavior is calm, cooperative, kc6 appropriate for age, quiet. Pain: Unable to use pain scale. Does not appear to understand pain scale. FLACC scale score is 3 out of 10. EENT: No signs and/or symptoms were reported regarding the EENT system. Neuro: Merino Agitation-Sedation Scale (RASS): 0 - Alert and Calm Level of Consciousness is awake, alert, obeys commands, Oriented to person, place, time, situation, Appropriate for age. Cardiovascular: Capillary refill < 3 seconds. Respiratory: Airway is patent Trachea midline Respiratory effort is even, unlabored, Respiratory pattern is regular, symmetrical. GI: No signs and/or symptoms were reported involving the gastrointestinal system. : No signs and/or symptoms were reported regarding the genitourinary system. Derm: No signs and/or symptoms reported regarding the dermatologic system. Skin is intact, Skin is pink, warm \T\ dry. Musculoskeletal: No signs and/or symptoms reported regarding the musculoskeletal system. Circulation, motion, and sensation intact. Capillary refill < 3 seconds, Range of motion: intact in all extremities. Historical: - Allergies: 15:00 Sulfa (Sulfonamide Antibiotics); kc6 - PMHx: 15:00 Dementia; High Cholesterol; Hypertension; Myocardial infarction; kc6 - Immunization history:: Client reports receiving the 2nd dose of the Covid vaccine, Flu vaccine is up to date. - Social history:: Smoking status: Patient denies any tobacco usage or history of. - Family history:: not pertinent. - Hospitalizations: : No recent hospitalization is reported. Screenin:02 [facility] ED Fall Risk Assessment (Adult) History of falling in the last 3 months, kc6 including since admission Yes- single mechanical fall (1 pt) Confusion or Disorientation Yes (5 pts) Intoxicated or Sedated No (0 pts) Impaired Gait Yes (1 pt) Mobility Assist Device Used Yes (1 pt) Altered Elimination No (0 pt) Score/Fall Risk Level 3 or more points = High Risk Oriented to surroundings, Maintained a safe environment, Educated pt \T\ family on fall prevention, incl call for assistance when getting out of bed, Assessed \T\ reinforced patient's understanding of fall precautions, Hourly rounding (assess needs \T\ fall precautionary measures) done. Abuse screen: Denies threats or abuse. Denies injuries from another. Nutritional screening: No deficits noted. Tuberculosis screening: No symptoms or risk factors identified. Assessment: 15:02 Reassessment: please see triage assessment. kc6 16:03 Reassessment: Patient appears in no apparent distress at this time. No changes from kc6 previously documented assessment. Patient and/or family updated on plan of care and expected duration. Pain level reassessed. Patient is alert, oriented x 3, equal unlabored respirations, skin warm/dry/pink. Vital Signs: 14:59 BP 161 / 86; Pulse 82; Resp 18 S; Pulse Ox 97% on 2 lpm NC; Weight 52.16 kg (R); Height kc6 5 ft. 1 in. (R); Pain 3/10; 16:03 BP 172 / 88; Pulse 80; Resp 18; Pulse Ox 100% on 2 lpm NC; kc6 14:59 Body Mass Index 21.73 (52.16 kg, 154.94 cm) kc6 14:59 Pain Scale: Adult kc6 ED Course: 14:55 Patient arrived in ED. kc6 14:55 Evaristo Barahona MD is Attending Physician. rn 14:59 Janie Shaw, RN is Primary Nurse. kc6 15:00 Triage completed. kc6 15:00 Arm band placed on. kc6 15:02 Patient has correct armband on for positive identification. Bed in low position. Call kc6 light in reach. Side rails up X2. Adult w/ patient. 15:22 Head C Spine Cap Wo Con In Process Unspecified. EDMS 15:47 Inserted saline lock: 20 gauge in right antecubital area, using aseptic technique. kc6 Blood collected. 17:08 No provider procedures requiring assistance completed. IV discontinued, intact, kc6 bleeding controlled, No redness/swelling at site. Pressure dressing applied. Administered Medications: 15:47 Drug: NS 0.9% IV 500 ml Route: IV; Rate: bolus; Site: right antecubital; kc6 16:48 Follow up: Response: No adverse reaction; IV Status: Completed infusion; IV Intake: eh3 500ml 16:53 Drug: Ciprofloxacin PO 500 mg Route: PO; kc6 17:09 Follow up: Response: No adverse reaction kc Medication: 17:09 VIS not applicable for this client. kc6 Intake: 16:48 IV: 500ml; Total: 500ml. eh3 Outcome: 16:40 Discharge ordered by . rn 17:08 Discharged to home via wheelchair, with family, with significant other. kc6 17:08 Condition: stable 17:08 Discharge instructions given to patient, Instructed on discharge instructions, follow up and referral plans. medication usage, Demonstrated understanding of instructions, follow-up care, medications, Prescriptions given X 1. 17:09 Patient left the ED. kc6 Signatures: Dispatcher [employer] EDPR Evaristo Barahona MD MD rn Hall, Erin, RN RN [facility] Janie Shaw, XENIA RN [facility]
--- NOTE | 2023-05-13 16:41 | EDPHYS ---
Physician Documentation [facility] Name: Anh Saavedra Age: 78 yrs Sex: Female : 1945 Arrival Date: 05/13/2023 Time: 14:51 Bed 14 Private MD: ED Physician Evaristo Barahona HPI: 05/13 15:11 This 78 yrs old Female presents to ER via EMS with complaints of Fall Injury. rn 15:11 Details of fall: The patient fell from a supine position, out of bed. Onset: The rn symptoms/episode began/occurred this morning. Associated injuries: The patient sustained no obvious injury. Severity of symptoms: At their worst the symptoms were mild, in the emergency department the symptoms are unchanged. It is unknown whether or not the patient has had similar symptoms in the past. The patient has not recently seen a physician. reports heard her fall from bed this AM, around 0800, heard a loud thump, no obvious injuries so put her back in bed and gave her OTC meds. Pt ambulatory later. Brought her in for further evaluation. No fever. No vomiting. No diarrhea. Pt with severe dementia.. Historical: - Allergies: 15:00 Sulfa (Sulfonamide Antibiotics); kc6 - PMHx: 15:00 Dementia; High Cholesterol; Hypertension; Myocardial infarction; kc6 - Immunization history:: Client reports receiving the 2nd dose of the Covid vaccine, Flu vaccine is up to date. - Social history:: Smoking status: Patient denies any tobacco usage or history of. - Family history:: not pertinent. - Hospitalizations: : No recent hospitalization is reported. ROS: 15:11 Constitutional: Negative for fever, chills, and weight loss, Eyes: Negative for injury, rn pain, redness, and discharge, Neck: Negative for injury, pain, and swelling, Cardiovascular: Negative for chest pain, palpitations, and edema, Respiratory: Negative for shortness of breath, cough, wheezing, and pleuritic chest pain, Abdomen/GI: Negative for abdominal pain, nausea, vomiting, diarrhea, and constipation, MS/Extremity: Negative for injury and deformity, Skin: Negative for injury, rash, and discoloration, Neuro: Negative for headache, weakness, numbness, tingling, and seizure. Exam: 15:15 Constitutional: This is a well developed, well nourished patient who is awake, alert, rn and in no acute distress. Head/Face: Normocephalic, atraumatic. Eyes: Sunken eyes. Periorbital areas with no swelling, redness, or edema. ENT: No oral trauma noted. Dry MM Neck: Trachea midline, no masses palpated, and no cervical lymphadenopathy. Supple, full range of motion without nuchal rigidity, or vertebral point tenderness. No Meningismus. Chest/axilla: Normal chest wall appearance and motion. Nontender with no deformity. No lesions are appreciated. Cardiovascular: Regular rate and rhythm. No pulse deficits. Respiratory: No increased work of breathing, no retractions or nasal flaring. Abdomen/GI: Soft, non-tender Back: No spinal tenderness. No costovertebral tenderness. Full range of motion. Skin: Warm, dry, no lacerations MS/ Extremity: Pulses equal, no cyanosis. Neuro: Awake and alert, GCS 15, moves all 4 extremities Vital Signs: 14:59 BP 161 / 86; Pulse 82; Resp 18 S; Pulse Ox 97% on 2 lpm NC; Weight 52.16 kg (R); Height kc6 5 ft. 1 in. (R); Pain 3/10; 16:03 BP 172 / 88; Pulse 80; Resp 18; Pulse Ox 100% on 2 lpm NC; kc6 14:59 Body Mass Index 21.73 (52.16 kg, 154.94 cm) kc6 14:59 Pain Scale: Adult kc6 MDM: 14:55 Patient medically screened. rn 16:38 Differential diagnosis: closed head injury, contusion, fracture, multiple trauma, rn sprain, strain. Differential diagnosis: UTI, dehydration. Data reviewed: vital signs, nurses notes. Counseling: I had a detailed discussion with the patient and/or guardian regarding: the historical points, exam findings, and any diagnostic results supporting the discharge/admit diagnosis, lab results, radiology results, the need for outpatient follow up, to return to the emergency department if symptoms worsen or persist or if there are any questions or concerns that arise at home. Special discussion: I discussed with the patient/guardian in detail that at this point there is no indication for admission to the hospital. It is understood, however, that if the symptoms persist or worsen the patient needs to return immediately for re-evaluation. ED course: No acute findings on imaging, questionable T7 injury, but no focal tenderness on exam. reports known other spinal problems, and "always in pain". Afebrile. + mild UTI. Will dc home with abx. . 05/13 15:05 Order name: CBC with Diff; Complete Time: 15:55 05/13 15:05 Order name: Basic Metabolic Panel; Complete Time: 16:15 05/13 15:05 Order name: Protime (+inr); Complete Time: 15:51 05/13 15:05 Order name: Ptt, Activated; Complete Time: 15:51 05/13 15:05 Order name: Test, Urine; Complete Time: 16:15 05/13 15:05 Order name: Urinalysis w/ reflexes; Complete Time: 16:15 05/13 16:12 Order name: Urine Culture [facility] 05/13 15:18 Order name: Head C Spine Cap Wo Con; Complete Time: 16:36 [facility] 05/13 15:05 Order name: IV Start; Complete Time: 15:47 rn Administered Medications: 15:47 Drug: NS 0.9% IV 500 ml Route: IV; Rate: bolus; Site: right antecubital; kc6 16:48 Follow up: Response: No adverse reaction; IV Status: Completed infusion; IV Intake: eh3 500ml 16:53 Drug: Ciprofloxacin PO 500 mg Route: PO; kc6 17:09 Follow up: Response: No adverse reaction kc6 Disposition Summary: 05/13/23 16:40 Discharge Ordered Location: Home rn Problem: new rn Symptoms: have improved rn Condition: Stable rn Diagnosis - Fall on same level, unspecified rn - UTI/ Urinary tract infection, site not specified rn - Dehydration rn - Wedge compression fracture of unspecified thoracic vertebra rn Followup: rn - With: Private Physician - When: As needed - Reason: Recheck today's complaints, Re-evaluation by your physician Discharge Instructions: - Discharge Summary Sheet rn - Dehydration, Adult rn - Thoracic Spine Fracture rn - Urinary Tract Infection, Adult rn Forms: - Medication Reconciliation Form rn - Thank You Letter rn - Antibiotic environmental intern - Prescription Opioid Use rn Prescriptions: - Cipro 500 mg Oral Tablet - take 1 tablet by ORAL route every 12 hours for 7 days; 14 tablet; Refills: 0, rn Product Selection Permitted Signatures: Dispatcher [employer] EDMS Evaristo Barahona MD MD rn Campbell, Kaitlyn, RN RN kc6 [employer] RN eh3 Corrections: (The following items were deleted from the chart) 15:16 15:11 Constitutional: Negative for fever, chills, and weight loss, Eyes: Negative for rn injury, pain, redness, and discharge, Neck: Negative for injury, pain, and swelling, Cardiovascular: Negative for chest pain, palpitations, and edema, Respiratory: Negative for shortness of breath, cough, wheezing, and pleuritic chest pain, Abdomen/GI: Negative for abdominal pain, nausea, vomiting, diarrhea, and constipation, rn 15:18 15:07 Head C Spine MPR Wo Con+CT.RAD.BRZ ordered. EDMS EDMS 15:19 15:07 Chest Single View+RAD.RAD.BRZ ordered. EDMS EDMS 15:19 15:07 Pelvis+RAD.RAD.BRZ ordered. EDMS EDMS
[2023-05-13] MEDS ORDERED: CIPROFLOXACIN HCL 500 MG TAB ONE (16:57)
[2023-05-13 17:29] VITALS: BP 172/88; O2SAT 100
== END 2023-05-13 17:09 | disposition home or self-care (01) ==
LOC: ER 14:51
DX: S22.060A Wedge compression fracture of T7-T8 vertebra, initial encounter for closed fracture (principal); N39.0 Urinary tract infection, site not specified; E86.0 Dehydration; W06.XXXA Fall from bed, initial encounter; I10 Essential (primary) hypertension; F03.90 Unspecified dementia, unspecified severity, without behavioral disturbance, psychotic disturbance, mood disturbance, and anxiety
CPT/HCPCS: 87088; 85025; 81001; 87086; 80048; 36415; 81025; 85610; 85730; 70450; 71250; 72125; 96360; 99284; J7040